=== PATIENT | female | born 1985 | race Caucasian/White ===

== ENCOUNTER 2016-08-06 22:11 | Emergency (ER) | payer MEDICAID, OTHER ==
[~2016-08-06] VITALS: Ht 152.4 cm; Wt 50.0 kg
[~2016-08-06 22:11] MED LIST: COMBTAB7 PO; KALETRA200 PO; ZOFR4TAB3 SL
[2016-08-06 22:13] VITALS: BP 115/78; PULSE 71; RESP 16; TEMP 98.1; O2SAT 100
[2016-08-07 03:30] VITALS: BP 112/59; PULSE 60; RESP 16; O2SAT 99
--- NOTE | 2016-08-07 03:50 | PD ---
HPI Chief Complaint: Medical Clearance Time Seen by Provider: 02:21 Travel History International Travel<30 days: No Contact w/Intl Traveler<30days: No Traveled to known affect area: No History of Present Illness HPI The patient is a 30 year old female reportedly at 9 weeks gestation who presents to the 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 The patient reports that she came to the emergency department after the incident and was evaluated. The patient was started on postexposure prophylaxis. She reports that she was given a 5 day supply. She reports that she was not given a prescription to continue it for 28 days. He reports that she was told to follow-up with an infectious disease doctor. She reports that she followed up with Workmen's Compensation and was referred to [facility]. She should've the paperwork to [facility] that she received from the [facility] regarding her evaluation and was told that she needed laboratory studies done. From reviewing the patient's record, the patient had hepatitis testing done and a urine test done that was positive. The patient was not aware at that time that she was . The patient had a follow-up quantitative beta hCG which confirmed her . The patient was made aware of the results and instructed to follow up with an [employer] in addition to the infectious disease doctor. The patient was given hepatitis immunoglobulin and hepatitis immunization was started. No other blood work was sent during that visit. The patient denies having HIV testing done at [facility]. 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 The patient denies having any recent fevers, cough, congestion, neck pain, chest pain, shortness of breath, abdominal pain, vomiting, diarrhea, urinary symptoms, or neurologic symptoms. The patient denies having any vaginal discharge or vaginal bleeding. LMP June 21, 2016 [facility] Past Medical History Narrative Medical The patient's past medical history is reportedly none. Asthma: No Blood Disorders: No Cancer: No Cardiovascular Problems: No Diminished Hearing: No Endocrine: No Gastrointestinal Disorders: Yes (ACUTE CHOLECYSTITIS) Immune Disorder: No Implanted Vascular Access Dvce: No Musculoskeletal: Yes Neurologic: No Psychiatric: No Reproductive: No Respiratory: No Seizures: No Thyroid Disease: No ?: LMP: 06/21/16 : 2 Para: 1 Past Surgical History Narrative Surgical The patient has a history of cholecystectomy, 1. Section: Yes Cholecystectomy: Yes () Other Surgery: Yes (C SECTION, LEFT INGUINAL LYMPH NODE BIOPSY) Social History Alcohol Use: No Tobacco Use: Yes (08/05 ppd) Substance Use: No Allergies-Medications (Allergen,Severity, Reaction): Coded Allergies: No Known Allergies (Verified , 08/06/16) Reported Meds & Prescriptions Reported Meds & Active Scripts Active ( Vit-Ferrous Fumarate) 1 Tab Tab 1 Tab PO DAILY Zofran Odt (Ondansetron Odt) 4 Mg Tab 4 Mg SL Q8HR PRN Kaletra (Lopinavir/Ritonavir) 200-50 Mg Tab 2 Tab PO Q12HR 28 Days Fill this 5 day prescription first & begin taking Kaletra 12 hours after the first dose received in the Emergency Department as prescribed. Combivir (Lamivudine-Zidovudine) 150-300 Mg Tab 1 Tab PO BID 28 Days Narrative Medication No medications currently. Review of Systems Except as stated in HPI: all other systems reviewed are Neg General / Constitutional: No: Fever Eyes: No: Visual changes HENT: No: Headaches Cardiovascular: No: Chest Pain or Discomfort Respiratory: No: Shortness of Breath Gastrointestinal: No: Abdominal Pain Genitourinary: No: Dysuria Musculoskeletal: No: Pain Skin: No Rash Neurologic: No: Weakness Psychiatric: No: Depression Endocrine: No: Polydipsia Hematologic/Lymphatic: No: Easy Bruising Physical Exam Narrative General: The patient is a well-developed well-nourished female in no acute distress. Head and Neck exam: Head is normocephalic atraumatic. Eyes: Pupils are equal round and reactive to light. Nose: Midline septum with pink mucous membranes Mouth: Dentition unremarkable. Moist mucus membranes. Posterior oropharynx is not erythematous. No tonsillar hypertrophy. Uvula midline. Airway patent. Neck: No palpable lymphadenopathy. No nuchal rigidity. No thyromegaly. Cardiovascular: Regular rate and rhythm without murmurs, gallops, or rubs. Lungs: Clear to auscultation bilaterally. No wheezes, rhonchi, or rales. Abdomen: Soft, without tenderness to palpation in all 4 quadrants of the abdomen. No guarding, rebound, or rigidity. No tenderness on palpation of McBurney's point. Normal bowel sounds are audible. Extremities: No clubbing, cyanosis, or edema. 2+ pulses in all 4 extremities. No calf tenderness on palpation. Back: No spinous process tenderness to palpation. No costovertebral angle tenderness to palpation. Neurologic Exam: Grossly nonfocal. Skin Exam: No rash noted. Intact skin that is warm and dry. Data Data Last Documented VS Vital Signs Date Time Temp Pulse Resp B/P Pulse Ox O2 Delivery O2 Flow Rate FiO2 08/07/16 03:30 60 16 112/59 99 Room Air 08/06/16 22:13 98.1 Orders No Care Spec Serology (08/07/16 03:14) Complete Blood Count With Diff (08/07/16 03:03) Comprehensive Metabolic Panel (08/07/16 03:03) Lipase (08/07/16 03:03) Hepatitis Profile (08/07/16 03:03) Beta Hcg (Quant/Titer) (08/07/16 03:17) Ed Poc Ultrasound (08/07/16 04:02) Labs Laboratory Tests Test 08/07/16 04:00 White Blood Count 9.1 TH/MM3 Red Blood Count 3.99 MIL/MM3 Hemoglobin 12.3 GM/DL Hematocrit 35.0 % Mean Corpuscular Volume 87.8 FL Mean Corpuscular Hemoglobin 30.8 PG Mean Corpuscular Hemoglobin 35.0 % Concent Red Cell Distribution Width 13.2 % Platelet Count 175 TH/MM3 Mean Platelet Volume 9.2 FL Neutrophils (%) (Auto) 57.2 % Lymphocytes (%) (Auto) 31.9 % Monocytes (%) (Auto) 7.5 % Eosinophils (%) (Auto) 2.3 % Basophils (%) (Auto) 1.1 % Neutrophils # (Auto) 5.2 TH/MM3 Lymphocytes # (Auto) 2.9 TH/MM3 Monocytes # (Auto) 0.7 TH/MM3 Eosinophils # (Auto) 0.2 TH/MM3 Basophils # (Auto) 0.1 TH/MM3 CBC Comment DIFF FINAL Differential Comment Sodium Level 139 MEQ/L Potassium Level 3.6 MEQ/L Chloride Level 108 MEQ/L Carbon Dioxide Level 21.9 MEQ/L Anion Gap 9 MEQ/L Blood Urea Nitrogen 7 MG/DL Creatinine 0.48 MG/DL Estimat Glomerular Filtration 154 ML/MIN Rate Random Glucose 91 MG/DL Calcium Level 8.7 MG/DL Total Bilirubin 0.3 MG/DL Aspartate Amino Transf 14 U/L (AST/SGOT) Alanine Aminotransferase 19 U/L (ALT/SGPT) Alkaline Phosphatase 47 U/L Total Protein 6.8 GM/DL Albumin 3.6 GM/DL Lipase 342 U/L Human Chorionic Gonadotropin, [address] MIU/ML Quant [facility] Medical Decision Making Medical Screen Exam Complete: Yes Emergency Medical Condition: Yes Medical Record Reviewed: Yes Differential Diagnosis Hepatitis exposure versus HIV exposure Narrative Course During the course of the patients emergency department visit, the patients history, examination, and differential diagnosis were reviewed with the patient. The patient had IV access obtained and blood work sent for analysis. The patient consented to HIV testing. The patient's nurse notified the charge nurse and the warehouse team leader regarding this patient's case. Rapid HIV testing has been ordered. At this point, there is no indication for restarting the patient back on post exposure prophylaxis as she has been off of it since July 27. I discussed with the patient the fact that commonly Workmen's Compensation will care for patients after exposures related to work. However she reports that Workmen's Compensation was concerned that she would need to follow up with an infectious disease doctor. The infectious disease doctor that is neonatal specialist today is Dr. Najma Arroyo. The patient will be given the infectious disease doctor's information for follow-up. The patient's laboratory studies today are remarkable for a white count of 9.1, hemoglobin 12.3, platelets 175 with a normal differential. CMP is remarkable for a chloride of 108, creatinine 0.48, AST 14, lipase 342, quantitative beta hCG is 20,990, rapid HIV testing was reportedly negative according to Baldo in the lab. The patient has an appointment scheduled with women's care [facility] [facility] [facility]PER in approximately a week. The patient is resting comfortably and feels better, is alert and in no distress. The patients results and examination findings were discussed with the patient. The repeat examination is unremarkable and benign. The history, exam, diagnostic testing, and current condition do not suggest any significant pathology to warrant further testing, continued ED treatment, admission, or surgical evaluation at this point. The vital signs have been stable. The patient does not have uncontrollable pain, intractable vomiting, or other significant symptoms. The patient's condition is stable and appropriate for discharge. The patient will pursue further outpatient evaluation with a primary care physician or other designated or consulting physician as indicated in the discharge instructions. The patient expressed understanding and was agreeable with this plan. Physician Communication Physician Communication A call was placed out to the infectious disease doctor on-call at approximately 4:23 AM regarding this patient's case. Unfortunately, when the call center was called, we were informed that Dr. Arroyo does not take phone calls after 10 PM. The call that I was placing was a courtesy call regarding letting her know about the patient's history. The patient will as recommended by the call center , be given Dr. Arroyo's information for follow-up. Diagnosis Primary Impression: Needle stick injury of finger of right hand Qualified Code: S61.239D - Needle stick injury of finger of right hand, subsequent encounter Additional Impression: Qualified Code: Z33.1 - , unspecified gestational age Referrals: Najma Arroyo MD 2 days Service Planner 1 week Patient Instructions: General Instructions, Needle Stick Injuries (ED) Med/Other Pt SpecificInfo: Prescription(s) given Scripts Vit-Ferrous Fumarate ()1 Tab Tab1 Tab PO DAILY #30 TAB Ref 0 Prov:Vashti Neal MD 08/07/16 Disposition: 01 DISCHARGE HOME Condition: Stable Vashti Neal MD Aug 07, 2016 03:49
[2016-08-07 04:18] LABS: AUTOMATED NEUTROPHIL # 5.2 TH/MM3 (1.8-7.7); BASOPHIL # 0.1 TH/MM3 (0-0.2); BASOPHIL % 1.1 % (0.0-2.0); EOSINOPHIL # 0.2 TH/MM3 (0-0.4); EOSINOPHIL % 2.3 % (0.0-4.0); HEMO FLAGS DIFF FINAL; LYMPH % 31.9 % (9.0-44.0); LYMPHOCYTE # 2.9 TH/MM3 (1.0-4.8); MEAN CELL VOLUME 87.8 FL (80.0-100.0); MEAN CORPUSCULAR HEMOGLOBIN 30.8 PG (27.0-34.0); MONO % 7.5 % (0.0-8.0); NEUT % 57.2 % (16.0-70.0); PLATELET COUNT 175 TH/MM3 (150-450); RED BLOOD COUNT 3.99 MIL/MM3 (4.00-5.30); RED CELL DISTRIBUTION WIDTH 13.2 % (11.6-17.2); WHITE BLOOD COUNT 9.1 TH/MM3 (4.0-11.0)
[2016-08-07 04:42] LABS: ALKALINE PHOSPHATASE 47 U/L (45-117); TOTAL BILIRUBIN ADULT 0.3 MG/DL (0.2-1.0)
[2016-08-07 04:45] LABS: ALT (GPT) 19 U/L (10-53); ANION GAP 9 MEQ/L (5-15); AST (GOT) 14 U/L (15-37); BICARBONATE 21.9 MEQ/L (21.0-32.0); BLOOD UREA NITROGEN 7 MG/DL (7-18); CHLORIDE 108 MEQ/L (98-107); GLOMERULAR FILTRATION RATE 154 ML/MIN (>89); POTASSIUM 3.6 MEQ/L (3.5-5.1); SODIUM (NA) 139 MEQ/L (136-145)
[2016-08-07 05:35] LABS: BETA HCG QUANT 20990 MIU/ML (0-5)
[2016-08-07] MEDS ORDERED: TRICTAB PO (05:41)
== END 2016-08-07 07:09 | disposition home or self-care (01) ==
LOC: NEPC 22:11
DX: S61.239A Puncture wound without foreign body of unspecified finger without damage to nail, initial encounter (principal); W46.0XXA Contact with hypodermic needle, initial encounter; Y92.524 Gas station as the place of occurrence of the external cause; Y99.0 Civilian activity done for income or pay; O9A.211 Injury, poisoning and certain other consequences of external causes complicating pregnancy, first trimester; Z3A.09 9 weeks gestation of pregnancy
CPT/HCPCS: 80053; 80074; 83690; 84702; 85025; 86703; 99283

== ENCOUNTER 2017-01-28 12:59 | Emergency (ER) | payer MEDICAID ==
[~2017-01-28] VITALS: Ht 152.4 cm; Wt 50.0 kg
[~2017-01-28 12:59] MED LIST changes: +TRICTAB PO
--- NOTE | 2017-01-28 13:05 | PD ---
Physical Exam Date Seen by Provider: Jan 28, 2017 Time Seen by Provider: 13:04 [facility] Supervised Visit with DAPHNE: No Narrative Course 31 YO F with complaint of " a couple days" history of cramping RUQ abdominal pain. --F/C, N/V/D. LMP 01/24. Vitals reviewed. Patient seen in triage, awaiting bed placement. Moni Rucker Jan 28, 2017 13:05
[2017-01-28 13:09] VITALS: BP 132/74; PULSE 84; RESP 15; TEMP 97.8; O2SAT 97
[2017-01-28] MEDS ORDERED: SODIUM CHLOR 0.9% 1000 ML INJ 1,000 ML IV SCH (13:25)
[2017-01-28] MEDS ORDERED: KETOROLAC TROMETHAMINE 30 MG/ML (IVP) VIAL IVP ONE (13:30)
[2017-01-28] MEDS ORDERED: ONDANSETRON HCL 4 MG/2 ML VIAL IVP ONE (13:30)
--- NOTE | 2017-01-28 13:31 | PD ---
HPI Chief Complaint: Abdominal Pain Time Seen by Provider: 13:20 Travel History International Travel<30 days: No Contact w/Intl Traveler<30days: No Traveled to known affect area: No History of Present Illness HPI This patient was examined in the presence of a female nurse. 31-year-old female who underwent cholecystectomy on December 01, 2015. She presents for evaluation of crampy right upper quadrant and epigastric abdominal pain. Symptoms started 3 days ago. Pain is constant, worse when lying down, no alleviating factors. She has had similar pain a few other times since her cholecystectomy. She endorses some nausea. Denies vomiting, flank pain, chest pain or shortness of breath, fevers or chills, vaginal bleeding or discharge, diarrhea or constipation. She has no other complaints at this time. PFSH Past Medical History Medical History: Denies Significant Hx Asthma: No Blood Disorders: No Cancer: No Cardiovascular Problems: No Diminished Hearing: No Endocrine: No Gastrointestinal Disorders: Yes (ACUTE CHOLECYSTITIS) Immune Disorder: No Implanted Vascular Access Dvce: No Musculoskeletal: Yes Neurologic: No Psychiatric: No Reproductive: No Respiratory: No Immunizations Current: Yes Seizures: No Thyroid Disease: No ?: Not LMP: 01-24- : 2 Para: 1 Past Surgical History Section: Yes Cholecystectomy: Yes () Other Surgery: Yes (C SECTION, LEFT INGUINAL LYMPH NODE BIOPSY) Social History Alcohol Use: No Tobacco Use: Yes (08/05 ppd) Substance Use: No Allergies-Medications (Allergen,Severity, Reaction): Coded Allergies: No Known Allergies (Verified , 01/28/17) Reported Meds & Prescriptions Reported Meds & Active Scripts Active Zofran (Ondansetron HCl) 4 Mg Tab 4 Mg PO Q6HR PRN Macrobid (Nitrofurantoin Monoh/Nitrofur Macro) 100 Mg Cap 100 Mg PO BID 7 Days Review of Systems Except as stated in HPI: all other systems reviewed are Neg Physical Exam Narrative GENERAL: Well-developed well-nourished female in no acute distress. SKIN: Warm and dry. HEAD: Atraumatic. Normocephalic. EYES: Pupils equal and round. No scleral icterus. No injection or drainage. ENT: No nasal bleeding or discharge. Mucous membranes pink and moist. NECK: Trachea midline. No JVD. CARDIOVASCULAR: Regular rate and rhythm. No murmur appreciated. RESPIRATORY: No accessory muscle use. Clear to auscultation. Breath sounds equal bilaterally. GASTROINTESTINAL: Abdomen soft, mild epigastric/right upper quadrant tenderness without guarding. No CVA tenderness. MUSCULOSKELETAL: No obvious deformities. No edema. NEUROLOGICAL: Awake and alert. No obvious cranial nerve deficits. Motor grossly within normal limits. Normal speech. PSYCHIATRIC: Appropriate mood and affect; insight and judgment normal. Data Data Last Documented VS Vital Signs Date Time Temp Pulse Resp B/P Pulse Ox O2 Delivery O2 Flow Rate FiO2 01/28/17 13:22 18 01/28/17 13:09 97.8 84 132/74 97 Orders Complete Blood Count With Diff (01/28/17 13:25) Comprehensive Metabolic Panel (01/28/17 13:25) Lipase (01/28/17 13:25) Urinalysis - C+S If Indicated (01/28/17 13:25) Iv Access Insert/Monitor (01/28/17 13:25) Ondansetron Inj (Zofran Inj) (01/28/17 13:30) Sodium Chlor 0.9% 1000 Ml Inj (Ns 1000 M (01/28/17 13:25) Ketorolac Inj (Toradol Inj) (01/28/17 13:30) Ed Urine Pregnancytest Poc (01/28/17 13:25) Urine Culture (01/28/17 13:35) Ct Abd/Pel W Iv Contrast(Rout) (01/28/17 14:15) Iohexol 350 Inj (Omnipaque 350 Inj) (01/28/17 15:28) Morphine Inj (Morphine Inj) (01/28/17 16:30) Labs Laboratory Tests Test 01/28/17 01/28/17 13:35 13:45 Urine Color YELLOW Urine Turbidity HAZY Urine pH 6.5 Urine Specific [place] 1.025 Urine Protein 30 mg/dL Urine Glucose (UA) NEG mg/dL Urine Ketones NEG mg/dL Urine Occult Blood NEG Urine Nitrite NEG Urine Bilirubin NEG Urine Urobilinogen 4.0 MG/DL Urine Leukocyte Esterase SMALL Urine RBC 3 /hpf Urine WBC 18 /hpf Urine Squamous Epithelial 3 /hpf Cells Urine Bacteria OCC /hpf Urine Mucus MANY /lpf Microscopic Urinalysis Comment CULTURE INDICATED White Blood Count 9.5 TH/MM3 Red Blood Count 4.53 MIL/MM3 Hemoglobin 13.4 GM/DL Hematocrit 39.9 % Mean Corpuscular Volume 88.2 FL Mean Corpuscular Hemoglobin 29.6 PG Mean Corpuscular Hemoglobin 33.5 % Concent Red Cell Distribution Width 13.9 % Platelet Count 240 TH/MM3 Mean Platelet Volume 8.9 FL Neutrophils (%) (Auto) 63.1 % Lymphocytes (%) (Auto) 23.7 % Monocytes (%) (Auto) 11.0 % Eosinophils (%) (Auto) 1.5 % Basophils (%) (Auto) 0.7 % Neutrophils # (Auto) 6.0 TH/MM3 Lymphocytes # (Auto) 2.2 TH/MM3 Monocytes # (Auto) 1.0 TH/MM3 Eosinophils # (Auto) 0.1 TH/MM3 Basophils # (Auto) 0.1 TH/MM3 CBC Comment DIFF FINAL Differential Comment Sodium Level 140 MEQ/L Potassium Level 3.6 MEQ/L Chloride Level 105 MEQ/L Carbon Dioxide Level 28.5 MEQ/L Anion Gap 7 MEQ/L Blood Urea Nitrogen 6 MG/DL Creatinine 0.78 MG/DL Estimat Glomerular Filtration 87 ML/MIN Rate Random Glucose 94 MG/DL Calcium Level 9.2 MG/DL Total Bilirubin 0.5 MG/DL Aspartate Amino Transf 12 U/L (AST/SGOT) Alanine Aminotransferase 18 U/L (ALT/SGPT) Alkaline Phosphatase 59 U/L Total Protein 7.6 GM/DL Albumin 3.9 GM/DL Lipase 414 U/L MDM Medical Decision Making Medical Screen Exam Complete: Yes Emergency Medical Condition: Yes Medical Record Reviewed: Yes Differential Diagnosis Neuralgia, pancreatitis, [place] Rory syndrome, obstruction, gastroenteritis , gastritis Narrative Course 31-year-old female who underwent cholecystectomy on December 01, 2015 presents with 3 days of crampy epigastric/right upper quadrant abdominal pain. Physical examination reveals mild tenderness to palpation in the epigastrium/right upper quadrant. Per chart review the patient is been seen here several times with similar pain since the cholecystectomy. She was seen here with similar pain on April 25, 2016, had a CT of the abdomen and pelvis which was normal. She had CTs of the abdomen and pelvis on December 02 and January 23 of last year for similar pain which were also within normal limits. I don't suspect acute intra- abdominal pathology today. Plan is for basic lab work, IV Toradol, Zofran. She may benefit from outpatient follow-up with gastroenterology or her surgeon Dr. daigle. Laboratory reveals a mildly elevated lipase of 414. Therefore CT abdomen and pelvis was ordered and this was unremarkable. The plan would be to have the patient follow up with a regroover as an outpatient. Mandatory outpatient referral was placed. Her urinalysis also reveals pyuria with occasional bacteria as well. Pending culture results she will be placed on Macrobid. Recommended clear liquid diet. She is stable for discharge. Diagnosis Primary Impression: Pancreatitis Qualified Code: K85.90 - Acute pancreatitis, unspecified complication status, unspecified pancreatitis type Additional Impression: Urinary tract infection Qualified Code: N30.01 - Acute cystitis with hematuria Referrals: Property Damage Claims Adjustor Additional Instructions: Medication as prescribed. Clear liquid diet over the next 1-2 days. Follow up with a regroover. Return for any acutely new or worsening symptoms. Med/Other Pt SpecificInfo: Prescription(s) given Scripts Ondansetron (Zofran)4 Mg Tab4 Mg PO Q6HR PRN (NAUSEA OR VOMITING) #20 TAB Ref 0 Prov:Will Pope MD 01/28/17 Nitrofurantoin Monohydrate Macrocrystals (Macrobid)100 Mg Bex744 Mg PO BID 7 Days Ref 0 Prov:Will Pope MD 01/28/17 Disposition: 01 DISCHARGE HOME Condition: Stable Tang Hart Jan 28, 2017 13:31
[2017-01-28 13:54] LABS: BASOPHIL # 0.1 TH/MM3 (0-0.2); BASOPHIL % 0.7 % (0.0-2.0); EOSINOPHIL # 0.1 TH/MM3 (0-0.4); EOSINOPHIL % 1.5 % (0.0-4.0); HEMATOCRIT 39.9 % (35.0-46.0); HEMO FLAGS DIFF FINAL; LYMPH % 23.7 % (9.0-44.0); LYMPHOCYTE # 2.2 TH/MM3 (1.0-4.8); MEAN CELL VOLUME 88.2 FL (80.0-100.0); MEAN CORPUSCULAR HEMOGLOBIN 29.6 PG (27.0-34.0); MEAN CORPUSCULAR HGB CONC 33.5 % (32.0-36.0); NEUT % 63.1 % (16.0-70.0); PLATELET COUNT 240 TH/MM3 (150-450); RED BLOOD COUNT 4.53 MIL/MM3 (4.00-5.30); RED CELL DISTRIBUTION WIDTH 13.9 % (11.6-17.2); WHITE BLOOD COUNT 9.5 TH/MM3 (4.0-11.0)
[2017-01-28 13:59] LABS: BACTERIA, URINE OCC /hpf; BLOOD, URINE NEG (NEG); COMMENT (UR) CULTURE INDICATED; CULTURE IF INDICATED CULTURE INDICATED; GLUCOSE,URINE NEG (NEG); KETONE, URINE NEG (NEG); MUCUS URINE MANY /lpf (OCC); NITRITE,URINE NEG (NEG); PH, URINE 6.5 (5.0-8.5); SQUAMOUS EPITHELIAL CELL URINE 3 /hpf (0-5); URINE COLOR YELLOW (YELLW/STRAW)
[2017-01-28 14:14] LABS: ANION GAP 7 MEQ/L (5-15); AST (GOT) 12 U/L (15-37); BICARBONATE 28.5 MEQ/L (21.0-32.0); BLOOD UREA NITROGEN 6 MG/DL (7-18); CHLORIDE 105 MEQ/L (98-107); GLOMERULAR FILTRATION RATE 87 ML/MIN (>89); POTASSIUM 3.6 MEQ/L (3.5-5.1); SODIUM (NA) 140 MEQ/L (136-145)
[2017-01-28 14:16] LABS: ALKALINE PHOSPHATASE 59 U/L (45-117); ALT (GPT) 18 U/L (10-53); TOTAL BILIRUBIN ADULT 0.5 MG/DL (0.2-1.0)
[2017-01-28] MEDS ORDERED: IOHEXOL 350 MG/ML 10 ML VIAL (for RAD DIAG) IV ONE (15:28)
--- NOTE | 2017-01-28 15:34 | RADRPT ---
EXAM DATE/TIME: 01/28/2017 15:23 [place] COMPARISON: CT ABDOMEN & PELVIS W CONTRAST, April 25, 2016, 21:12. INDICATIONS : Right upper quadrant pain IV CONTRAST: 100 cc Omnipaque 350 (iohexol) IV ORAL CONTRAST: No oral contrast ingested. RADIATION DOSE: 4.63 CTDIvol (mGy) MEDICAL HISTORY : None SURGICAL HISTORY : Cholecystectomy. section. ENCOUNTER: Initial ACUITY: 1 day PAIN SCALE: 7/10 LOCATION: Right upper quadrant TECHNIQUE: Volumetric scanning of the abdomen and pelvis was performed. Using automated exposure control and ad justment of the mA and/or kV according to patient size, radiation dose was kept as low as reasonably achievable to obtain optimal diagnostic quality images. DICOM format image data is available electro nically for review and comparison. FINDINGS: There is a stable subtle hypervascular lesion in the right lobe of the liver. Kidneys, adrenals, sple en, pancreas, stomach, urinary bladder, uterus and adnexa are unremarkable. Trace free fluid in the p nigel. No evidence of bowel obstruction. The patient is status post cholecystectomy. The appendix is normal. No adenopathy or aneurysm. CONCLUSION: No acute disease. Peter Lyons MD on January 28, 2017 at 15:31 Board Certified Radiologist. This report was verified electronically.
[2017-01-28] MEDS ORDERED: MACR100C2 PO (16:18)
[2017-01-28] MEDS ORDERED: ZOFR4TAB PO (16:18)
[2017-01-28] MEDS ORDERED: MORPHINE SULFATE 4 MG/ML INJ IV PUSH ONE (16:30)
[2017-01-28 16:39] VITALS: BP 122/74
== END 2017-01-28 16:48 | disposition home or self-care (01) ==
LOC: NEPD 12:59
DX: K85.90 Acute pancreatitis without necrosis or infection, unspecified (principal); N30.01 Acute cystitis with hematuria; B95.1 Streptococcus, group B, as the cause of diseases classified elsewhere; F17.210 Nicotine dependence, cigarettes, uncomplicated
CPT/HCPCS: 74177; 80053; 81001; 83690; 84703; 85025; 86403; 87086; 96361; 96374; 96375; 99285; J1885; J2270; J2405; J7030; Q9967

== ENCOUNTER 2017-02-10 23:00 | Emergency (ER) | payer MEDICAID ==
[~2017-02-10] VITALS: Ht 152.4 cm; Wt 50.0 kg
[~2017-02-10 23:00] MED LIST changes: -COMBTAB7 PO; -KALETRA200 PO; +MACR100C2 PO; -TRICTAB PO; +ZOFR4TAB PO; -ZOFR4TAB3 SL
[2017-02-10 23:20] VITALS: BP 131/73; PULSE 62; RESP 16; TEMP 97.9; O2SAT 100
[2017-02-11] MEDS ORDERED: CLINDAMYCIN PED INJ PTS< 20 KG 600 MG in SYRINGE/BAG 1 EA OTHER ONE (01:30)
[2017-02-11] MEDS ORDERED: ACETAMINOPHEN/HYDROcodone 325 MG/5 MG TAB PO ONE (01:30)
[2017-02-11] MEDS ORDERED: CLIN150 PO (01:30)
[2017-02-11] MEDS ORDERED: DICL75TA PO (01:30)
--- NOTE | 2017-02-11 01:35 | PD ---
HPI Chief Complaint: Oral / Dental Pain or Problem Time Seen by Provider: 01:32 Travel History International Travel<30 days: No Contact w/Intl Traveler<30days: No Traveled to known affect area: No History of Present Illness HPI 31-year-old white female presents to emergency department complaints of right facial pain and swelling. She states that 2-3 days ago she had pain in her right upper maxilla from a toothache. She states that since then she's had pain radiating to her right ear and face. She's had some swelling now. She denies any fever chills. No nausea vomiting. She does report some difficulty opening her mouth pain. Patient states the pain is severe. PFSH Past Medical History Narrative Medical Gallstones Asthma: No Blood Disorders: No Cancer: No Cardiovascular Problems: No Diminished Hearing: No Endocrine: No Gastrointestinal Disorders: Yes (ACUTE CHOLECYSTITIS) Immune Disorder: No Implanted Vascular Access Dvce: No Musculoskeletal: Yes Neurologic: No Psychiatric: No Reproductive: No Respiratory: No Immunizations Current: Yes Seizures: No Thyroid Disease: No Tetanus Vaccination: < 5 Years Influenza Vaccination: Yes ?: Unknown LMP: 01/25/17 : 2 Para: 1 Past Surgical History Section: Yes Cholecystectomy: Yes () Other Surgery: Yes (C SECTION, LEFT INGUINAL LYMPH NODE BIOPSY) Social History Alcohol Use: No Tobacco Use: Yes (08/05 ppd) Substance Use: No Allergies-Medications (Allergen,Severity, Reaction): Coded Allergies: No Known Allergies (Verified , 02/11/17) Reported Meds & Prescriptions Reported Meds & Active Scripts Active Diclofenac Sodium DR (Diclofenac Sodium) 75 Mg Tabdr 75 Mg PO BID Cleocin (Clindamycin HCl) 150 Mg Cap 300 Mg PO Q6H Review of Systems Except as stated in HPI: all other systems reviewed are Neg Physical Exam Narrative GENERAL: Well-developed, well-nourished in no acute distress. Nontoxic appearing. HEAD: Patient has mild swelling to the right anterior cheek. Atraumatic. EYES: Pupils equal round and reactive. Extraocular motions intact. No scleral icterus. No injection or drainage. ENT: TMs clear without erythema. The external auditory canals clear. Nose: clear . Posterior pharynx is pink and moist. No tonsillar edema or exudate. Uvula midline. Airway patent. Patient has a very large dental carry in tooth # 3. It is decayed to the gumline. There is a large amount of edema to the surrounding gingiva. Positive pain to percussion. The floor the mouth is normal. No trismus NECK: Trachea midline.Supple, nontender, moves head freely. No central bony tenderness or spasm. CARDIOVASCULAR: Regular rate and rhythm without murmurs, gallops, or rubs. RESPIRATORY: Clear to auscultation. Breath sounds equal bilaterally. No wheezes , rales, or rhonchi. GASTROINTESTINAL: Abdomen soft, non-tender, nondistended. No hepato-splenomegaly , or palpable masses. No guarding. EXTREMITIES: No clubbing, cyanosis, or edema. No joint tenderness, effusion, or edema noted. BACK: Nontender without deformity or crepitance. No flank tenderness. Data Data Last Documented VS Vital Signs Date Time Temp Pulse Resp B/P Pulse Ox O2 Delivery O2 Flow Rate FiO2 02/10/17 23:20 97.9 62 16 131/73 100 Room Air Orders Acetamin-Hydrocod 325-5 Mg ([place] 5-325 (02/11/17 01:30) Clindamycin Ped Inj Pts< 20 Kg (Cleocin (02/11/17 01:30) MDM Medical Decision Making Medical Screen Exam Complete: Yes Emergency Medical Condition: Yes Medical Record Reviewed: Yes Differential Diagnosis MDM: Moderate Differential diagnoses: Dental abscess, dental caries, osteitis, cellulitis Narrative Course Patient has a dental abscess with early cellulitis. Patient's given clindamycin 600 mg IM and one Lortab 5 milligram by mouth. Diagnosis Primary Impression: dental abscess with early facial cellulitis Patient Instructions: Narcotic given in the ED, General Instructions Additional Instructions: Rest. Saltwater gargles. Surfside oil on cotton balls. Clindamycin and diclofenac. follow-up with a dentist or oral surgeon as soon as possible. And return to the ER if any problems. Med/Other Pt SpecificInfo: Prescription(s) given Scripts Diclofenac Sodium DR 75 Mg Tabdr75 Mg PO BID #20 TAB Prov:Vashti Neal MD 02/11/17 Clindamycin (Cleocin)150 Mg [id number] Mg PO Q6H #80 CAP Prov:Vashti Neal MD 02/11/17 Disposition: 01 DISCHARGE HOME Condition: Stable Bennett Moy PA Feb 11, 2017 01:35
[2017-02-11] MEDS ORDERED: SODIUM CHLORIDE 0.9% IV ONE (01:45)
[2017-02-11] MEDS ORDERED: CLINDAMYCIN PED IV ONE (01:45)
[2017-02-11] MEDS ORDERED: CLINDAMYCIN INJ 600 MG in SODIUM CHLORIDE 0.9% INJ 100 ML IV SCH (01:45)
== END 2017-02-11 02:13 | disposition home or self-care (01) ==
LOC: NEPD 23:00
DX: K04.7 Periapical abscess without sinus (principal); L03.211 Cellulitis of face; F17.200 Nicotine dependence, unspecified, uncomplicated
CPT/HCPCS: 96374

== ENCOUNTER 2017-04-01 14:35 | Emergency (ER) | payer MEDICAID ==
[~2017-04-01] VITALS: Ht 152.4 cm; Wt 50.0 kg
[~2017-04-01 14:35] MED LIST changes: +CLIN150 PO; +DICL75TA PO; +DICY10 PO; -MACR100C2 PO; -ZOFR4TAB PO; +ZOFR8TAB4 SL
[2017-04-01 14:36] VITALS: BP 139/71; PULSE 52; RESP 15; TEMP 98.3; O2SAT 97
--- NOTE | 2017-04-01 14:45 | PD ---
Physical Exam Time Seen by Provider: 14:45 Narrative 31yo F c/o abd pain x 1 week. Dx w/ pancreatitis 3 weeks ago. +fever 101.0, N , V, D. Patient seen in triage. VS reviewed. Patient awaiting bed placement. Data Data Last Documented VS Vital Signs Date Time Temp Pulse Resp B/P (MAP) Pulse Ox O2 Delivery O2 Flow Rate FiO2 04/01/17 14:36 98.3 52 15 139/71 (93) 97 MDM Supervised Visit with DAPHNE: Queenie Choudhury Apr 01, 2017 14:45
--- NOTE | 2017-04-01 17:34 | PD ---
HPI Chief Complaint: Abdominal Pain Time Seen by Provider: 17:25 Travel History International Travel<30 days: No Contact w/Intl Traveler<30days: No Traveled to known affect area: No History of Present Illness HPI Patient is a 31-year-old female presents emergency Department with epigastric pain. Patient states his been going on for greater than 2 years and that I evaluated multiple times this hospital. She states she was told it was many different things including pancreatitis and colitis but she is not getting any better. She states the past 3 days the pain is been severe. She states that she has tried Tylenol at home and it doesn't help. She states she's been evaluated recently and told might be her pancreas. She has an appointment with a primary care physician who is supposed to refer her to a marine reporter however it appears as though her insurance status only lets her primary care provider refer her to specialist because she's been referred by another provider in the past. She denies any fever denies but does endorse nausea vomiting and diarrhea both of which are nonbloody and nonbilious and non- melenanous. Patient states the pain is severe and gradually worsening and epigastric. PFSH Past Medical History Asthma: No Blood Disorders: No Cancer: No Cardiovascular Problems: No Diminished Hearing: No Endocrine: No Gastrointestinal Disorders: Yes (ACUTE CHOLECYSTITIS) Immune Disorder: No Implanted Vascular Access Dvce: No Musculoskeletal: Yes Neurologic: No Psychiatric: No Reproductive: No Respiratory: No Immunizations Current: Yes Seizures: No Thyroid Disease: No ?: Not : 2 Para: 1 Past Surgical History Section: Yes Cholecystectomy: Yes () Other Surgery: Yes (C SECTION, LEFT INGUINAL LYMPH NODE BIOPSY) Social History Alcohol Use: No Tobacco Use: Yes (2 ppd) Substance Use: No Allergies-Medications (Allergen,Severity, Reaction): Coded Allergies: No Known Allergies (Verified , 02/11/17) Reported Meds & Prescriptions Reported Meds & Active Scripts Active Zofran Odt (Ondansetron Odt) 4 Mg Tab 4 Mg SL ONCE Ultram (Tramadol HCl) 50 Mg Tab 50 Mg PO Q6H PRN Bentyl (Dicyclomine HCl) 10 Mg Cap 10 Mg PO TID PRN Zofran Odt (Ondansetron Odt) 8 Mg Tab 8 Mg SL Q8HR Review of Systems Except as stated in HPI: all other systems reviewed are Neg Physical Exam Narrative GENERAL: Well-developed well-nourished, sitting upright in a stretcher calm and collected and appears to be in no pain or distress. SKIN: Focused skin assessment warm/dry. HEAD: Atraumatic. Normocephalic. EYES: Pupils equal and round. No scleral icterus. No injection or drainage. ENT: No nasal bleeding or discharge. Mucous membranes pink and moist. NECK: Trachea midline. No JVD. CARDIOVASCULAR: Regular rate and rhythm. No murmur appreciated. RESPIRATORY: No accessory muscle use. Clear to auscultation. Breath sounds equal bilaterally. GASTROINTESTINAL: Abdomen soft, non-tender, nondistended. Hepatic and splenic margins not palpable. No rebound no percussive tenderness no CVA tenderness. MUSCULOSKELETAL: No obvious deformities. No clubbing. No cyanosis. No edema. NEUROLOGICAL: Awake and alert. No obvious cranial nerve deficits. Motor grossly within normal limits. Normal speech. PSYCHIATRIC: Appropriate mood and affect; insight and judgment normal. Data Data Last Documented VS Vital Signs Date Time Temp Pulse Resp B/P (MAP) Pulse Ox O2 Delivery O2 Flow Rate FiO2 04/01/17 20:33 04/01/17 19:52 51 17 100 Room Air 04/01/17 14:36 98.3 Orders Orders Urinalysis - C+S If Indicated (04/01/17 17:03) Complete Blood Count With Diff (04/01/17 17:03) Comprehensive Metabolic Panel (04/01/17 17:03) Lipase (04/01/17 17:03) Ed Urine Pregnancytest Poc (04/01/17 17:09) Sodium Chlor 0.9% 1000 Ml Inj (Ns 1000 M (04/01/17 17:45) Ondansetron Inj (Zofran Inj) (04/01/17 17:45) Ketorolac Inj (Toradol Inj) (04/01/17 17:45) Ketorolac Inj (Toradol Inj) (04/01/17 18:15) Ondansetron Inj (Zofran Inj) (04/01/17 18:15) Morphine Inj (Morphine Inj) (04/01/17 19:30) Labs Laboratory Tests Test 04/01/17 17:10 04/01/17 17:48 White Blood Count 9.1 TH/MM3 Red Blood Count 4.47 MIL/MM3 Hemoglobin 13.5 GM/DL Hematocrit 40.5 % Mean Corpuscular Volume 90.5 FL Mean Corpuscular Hemoglobin 30.2 PG Mean Corpuscular Hemoglobin Concent 33.4 % Red Cell Distribution Width 13.0 % Platelet Count 201 TH/MM3 Mean Platelet Volume 9.7 FL Neutrophils (%) (Auto) 57.0 % Lymphocytes (%) (Auto) 31.9 % Monocytes (%) (Auto) 7.0 % Eosinophils (%) (Auto) 2.9 % Basophils (%) (Auto) 1.2 % Neutrophils # (Auto) 5.2 TH/MM3 Lymphocytes # (Auto) 2.9 TH/MM3 Monocytes # (Auto) 0.6 TH/MM3 Eosinophils # (Auto) 0.3 TH/MM3 Basophils # (Auto) 0.1 TH/MM3 CBC Comment DIFF FINAL Differential Comment Blood Urea Nitrogen 6 MG/DL Creatinine 0.57 MG/DL Random Glucose 80 MG/DL Total Protein 7.6 GM/DL Albumin 3.8 GM/DL Calcium Level 8.5 MG/DL Alkaline Phosphatase 61 U/L Aspartate Amino Transf (AST/SGOT) 19 U/L Alanine Aminotransferase (ALT/SGPT) 20 U/L Total Bilirubin 0.4 MG/DL Sodium Level 141 MEQ/L Potassium Level 3.9 MEQ/L Chloride Level 110 MEQ/L Carbon Dioxide Level 26.2 MEQ/L Anion Gap 5 MEQ/L Estimat Glomerular Filtration Rate 125 ML/MIN Lipase 456 U/L Urine Color YELLOW Urine Turbidity HAZY Urine pH 7.0 Urine Specific [place] 1.020 Urine Protein TRACE mg/dL Urine Glucose (UA) NEG mg/dL Urine Ketones NEG mg/dL Urine Occult Blood LARGE Urine Nitrite NEG Urine Bilirubin NEG Urine Urobilinogen 2.0 MG/DL Urine Leukocyte Esterase NEG Urine RBC 2 /hpf Urine WBC 3 /hpf Urine Squamous Epithelial Cells 5 /hpf Urine Amorphous Sediment RARE Urine Bacteria RARE /hpf Urine Mucus MANY /lpf Microscopic Urinalysis Comment CULT NOT INDICATED MDM Medical Decision Making Medical Screen Exam Complete: Yes Emergency Medical Condition: Yes Differential Diagnosis Pancreatitis, gastritis, gastroenteritis, acute abdomen unlikely, chronic abdominal pain. Narrative Course Patient roomed emergency department, she localizes her pain into the upper quadrants. Work was obtained and has a completely normal CBC, chemistry shows an elevated lipase to 456 otherwise electrolytes are unremarkable LFTs within normal limits. UA shows large occult blood otherwise negative. Patient was initially given Toradol which did not significantly alter her pain. She was then given morphine states her pain felt better to go home. She was given a small prescription of Ultram. She was told to use these sparingly. Discussed at length returned ED criteria. We also discussion about CAT scan and I recommended against this time given how many times she's had a CAT scan her benign abdomen and it was unlikely to be fruitful in to the cause of her pain. Discussed her elevated lipase and at this time she is tolerating by mouth fluids that she brought from home and she is drinking him in the emergency department. Her pain seems well under control and she is already had a cholecystectomy. Diagnosis Primary Impression: Abdominal pain Med/Other Pt SpecificInfo: Prescription(s) given Scripts Ondansetron Odt (Zofran Odt) 4 Mg Tab 4 MG SL ONCE for Nausea/Vomiting, #1 TAB 0 Refills Prov: Dinesh Shane MD 04/01/17 Tramadol (Ultram) 50 Mg Tab 50 MG PO Q6H Y for PAIN, #20 TAB 0 Refills Prov: Dinesh Shane MD 04/01/17 Disposition: 01 DISCHARGE HOME Condition: Stable Dinesh Shane MD Apr 01, 2017 17:34
[2017-04-01 17:45] LABS: AUTOMATED NEUTROPHIL # 5.2 TH/MM3 (1.8-7.7); BASOPHIL # 0.1 TH/MM3 (0-0.2); BASOPHIL % 1.2 % (0.0-2.0); EOSINOPHIL # 0.3 TH/MM3 (0-0.4); EOSINOPHIL % 2.9 % (0.0-4.0); HEMATOCRIT 40.5 % (35.0-46.0); HEMO FLAGS DIFF FINAL; LYMPH % 31.9 % (9.0-44.0); LYMPHOCYTE # 2.9 TH/MM3 (1.0-4.8); MEAN CELL VOLUME 90.5 FL (80.0-100.0); MEAN CORPUSCULAR HEMOGLOBIN 30.2 PG (27.0-34.0); MEAN CORPUSCULAR HGB CONC 33.4 % (32.0-36.0); PLATELET COUNT 201 TH/MM3 (150-450); RED BLOOD COUNT 4.47 MIL/MM3 (4.00-5.30); WHITE BLOOD COUNT 9.1 TH/MM3 (4.0-11.0)
[2017-04-01] MEDS ORDERED: SODIUM CHLOR 0.9% 1000 ML INJ 1,000 ML IV ONE (17:45)
[2017-04-01] MEDS ORDERED: KETOROLAC TROMETHAMINE 30 MG/ML (IVP) VIAL IV PUSH ONE ×2 (17:45→18:15)
[2017-04-01] MEDS ORDERED: ONDANSETRON HCL 4 MG/2 ML VIAL IV PUSH ONE ×2 (17:45→18:15)
[2017-04-01 18:06] LABS: ALKALINE PHOSPHATASE 61 U/L (45-117); TOTAL BILIRUBIN ADULT 0.4 MG/DL (0.2-1.0)
[2017-04-01 18:11] LABS: ALT (GPT) 20 U/L (10-53); ANION GAP 5 MEQ/L (5-15); AST (GOT) 19 U/L (15-37); BICARBONATE 26.2 MEQ/L (21.0-32.0); BLOOD UREA NITROGEN 6 MG/DL (7-18); CHLORIDE 110 MEQ/L (98-107); GLOMERULAR FILTRATION RATE 125 ML/MIN (>89); SODIUM (NA) 141 MEQ/L (136-145)
[2017-04-01 18:12] LABS: POTASSIUM 3.9 MEQ/L (3.5-5.1)
[2017-04-01 18:18] VITALS: BP 126/70; PULSE 48; RESP 16; O2SAT 98
[2017-04-01 18:33] LABS: BACTERIA, URINE RARE /hpf; BLOOD, URINE LARGE (NEG); COMMENT (UR) CULT NOT INDICATED; CULTURE IF INDICATED CULT NOT INDICATED; GLUCOSE,URINE NEG (NEG); KETONE, URINE NEG (NEG); MUCUS URINE MANY /lpf (OCC); NITRITE,URINE NEG (NEG); SQUAMOUS EPITHELIAL CELL URINE 5 /hpf (0-5); URINE COLOR YELLOW (YELLW/STRAW)
[2017-04-01] MEDS ORDERED: MORPHINE SULFATE 8 MG/ML INJ IV PUSH ONE (19:30)
[2017-04-01 19:32] VITALS: BP 117/69; PULSE 48; RESP 16; O2SAT 100
[2017-04-01 19:52] VITALS: BP 105/56; PULSE 51; RESP 17; O2SAT 100
[2017-04-01] MEDS ORDERED: ZOFR4TAB3 SL (20:12)
[2017-04-01] MEDS ORDERED: ULTR50TA5 PO (20:12)
== END 2017-04-01 20:26 | disposition home or self-care (01) ==
LOC: NEPD 14:35
DX: R10.12 Left upper quadrant pain (principal); R10.11 Right upper quadrant pain; R11.2 Nausea with vomiting, unspecified; R19.7 Diarrhea, unspecified; F17.200 Nicotine dependence, unspecified, uncomplicated
CPT/HCPCS: 80053; 81001; 83690; 84703; 85025; 96361; 96374; 96375; 99284; J1885; J2270; J2405; J7030

== ENCOUNTER 2017-09-23 23:50 | Emergency (ER) | payer MEDICAID ==
[~2017-09-23] VITALS: Ht 152.4 cm; Wt 48.0 kg
[~2017-09-23 23:50] MED LIST changes: -CLIN150 PO; -DICL75TA PO; +TRAM50 PO; +ZOFR4TAB3 SL
[2017-09-23 23:51] VITALS: BP 128/71; PULSE 59; RESP 16; TEMP 98.5; O2SAT 98
== END 2017-09-24 04:00 | disposition left against medical advice (07) ==
LOC: NED 23:50
DX: R10.10 Upper abdominal pain, unspecified (principal)
CPT/HCPCS: 99281

== ENCOUNTER 2017-09-30 09:53 | Emergency (ER) | payer MEDICAID ==
[~2017-09-30] VITALS: Ht 152.4 cm; Wt 48.0 kg
[2017-09-30 10:04] VITALS: BP 121/76; PULSE 84; RESP 14; TEMP 98.7; O2SAT 100
--- NOTE | 2017-09-30 10:28 | PD ---
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 Patient denies any fevers, chills. Patient states that she took 3 home test and there was a faint line. She states she called the doctor and they told her that she may or may not be and if she was, she may have a very very low hormone level. The patient denies any vaginal bleeding. Patient denies any vaginal discharge. Patient denies any dysuria, urgency, frequency. She states that they did a test upfront and it was negative. The patient has had her gallbladder removed in the past. She still has her appendix. She denies any diarrhea. There are no other complaints at the time of my examination. PFSH Past Medical History Asthma: No Blood Disorders: No Cancer: No Cardiovascular Problems: No Diminished Hearing: No Endocrine: No Gastrointestinal Disorders: Yes (ACUTE CHOLECYSTITIS) Genitourinary: Yes (CURRENT UTI) Immune Disorder: No Implanted Vascular Access Dvce: No Musculoskeletal: Yes Neurologic: No Psychiatric: No Reproductive: No Respiratory: No Immunizations Current: Yes Pancreatitis: Yes Seizures: No Thyroid Disease: No Tetanus Vaccination: < 5 Years Influenza Vaccination: Yes ?: LMP: 08/12/17 : 2 Para: 1 Miscarriage: 1 Past Surgical History Section: Yes Cholecystectomy: Yes () Other Surgery: Yes (C SECTION, LEFT INGUINAL LYMPH NODE BIOPSY) Social History Alcohol Use: No Tobacco Use: Yes (08/05 ppd) Substance Use: No Allergies-Medications (Allergen,Severity, Reaction): Coded Allergies: No Known Allergies (Verified Allergy, Unknown, 09/30/17) Reported Meds & Prescriptions Reported Meds & Active Scripts Active No Active Prescriptions or Reported Medications Review of Systems Except as stated in HPI: all other systems reviewed are Neg General / Constitutional: No: Fever, Chills HENT: No: Headaches, Neck Pain Cardiovascular: No: Chest Pain or Discomfort, Palpitations Respiratory: No: Cough, Shortness of Breath Gastrointestinal: Positive: Nausea, Abdominal Pain (Right lower/middle abdominal area), No: Vomiting, Diarrhea, Hematemesis, Hematochezia Genitourinary: No: Frequency, Dysuria, Pelvic Pain, Discharge, Vaginal Bleeding Musculoskeletal: No: Weakness, Pain Neurologic: No: Weakness, Dizziness, Headache Psychiatric: No: Substance Abuse Physical Exam Narrative GENERAL: Well-nourished, well-developed patient, in no acute respiratory distress. SKIN: Focused skin assessment warm/dry. HEAD: Normocephalic/atraumatic. EYES: No scleral icterus. No injection or drainage. NECK: Supple, trachea midline. No JVD or lymphadenopathy. CARDIOVASCULAR: Regular rate and rhythm without murmurs, gallops, or rubs. RESPIRATORY: Breath sounds equal bilaterally. No accessory muscle use. GASTROINTESTINAL: Abdomen soft, nondistended. The patient has tenderness to palpation in the right lower quadrant. There is positive guarding with no rebound. No pulsatile masses. No lower midline tenderness. MUSCULOSKELETAL: No cyanosis, or edema. BACK: Nontender without obvious deformity. No CVA tenderness. NEUROLOGICAL: Awake and alert. Cranial nerves II through XII intact. Motor and sensory grossly within normal limits. Five out of 5 muscle strength in all muscle groups. Normal speech. Data Data Last Documented VS Vital Signs Date Time Temp Pulse Resp B/P (MAP) Pulse Ox O2 Delivery O2 Flow Rate FiO2 09/30/17 10:31 98 Room Air 09/30/17 10:11 16 09/30/17 10:04 98.7 84 121/76 (91) Orders Orders Complete Blood Count With Diff (09/30/17 10:09) Urinalysis - C+S If Indicated (09/30/17 10:09) Beta Hcg (Quant/Titer) (09/30/17 10:09) Iv Access Insert/Monitor (09/30/17 10:09) Ecg Monitoring (09/30/17 10:09) Oximetry (09/30/17 10:09) Type And Screen (09/30/17 10:09) Ed Urine Pregnancytest Poc (09/30/17 10:09) Us Pelvis (Ques Pr/Ect)W Trans (09/30/17 11:29) Labs Laboratory Tests Test 09/30/17 10:25 White Blood Count 7.5 TH/MM3 Red Blood Count 4.61 MIL/MM3 Hemoglobin 14.0 GM/DL Hematocrit 40.9 % Mean Corpuscular Volume 88.8 FL Mean Corpuscular Hemoglobin 30.3 PG Mean Corpuscular Hemoglobin Concent 34.1 % Red Cell Distribution Width 13.6 % Platelet Count 225 TH/MM3 Mean Platelet Volume 9.3 FL Neutrophils (%) (Auto) 57.7 % Lymphocytes (%) (Auto) 29.0 % Monocytes (%) (Auto) 9.4 % Eosinophils (%) (Auto) 2.8 % Basophils (%) (Auto) 1.1 % Neutrophils # (Auto) 4.3 TH/MM3 Lymphocytes # (Auto) 2.2 TH/MM3 Monocytes # (Auto) 0.7 TH/MM3 Eosinophils # (Auto) 0.2 TH/MM3 Basophils # (Auto) 0.1 TH/MM3 CBC Comment DIFF FINAL Differential Comment Urine Color LIGHT-YELLOW Urine Turbidity CLEAR Urine pH 6.5 Urine Specific [place] 1.006 Urine Protein NEG mg/dL Urine Glucose (UA) NEG mg/dL Urine Ketones NEG mg/dL Urine Occult Blood NEG Urine Nitrite NEG Urine Bilirubin NEG Urine Urobilinogen LESS THAN 2.0 MG/DL Urine Leukocyte Esterase NEG Urine RBC LESS THAN 1 /hpf Urine WBC LESS THAN 1 /hpf Urine Squamous Epithelial Cells 3 /hpf Urine Bacteria RARE /hpf Urine Mucus FEW /lpf Microscopic Urinalysis Comment CULT NOT INDICATED Human Chorionic Gonadotropin, Quant 75 MIU/ML MDM Medical Decision Making Medical Screen Exam Complete: Yes Emergency Medical Condition: Yes Interpretation(s) Last Impressions Pelvis Ultrasound 09/30/17 1129 Signed Impressions: Service Date/Time: Saturday, September 30, 2017 12:36 - CONCLUSION: 1. of unknown location. There is a thickened endometrium but no gestational sac is identified within the uterus. Additionally, there are no features to indicate an ectopic . Suggest clinical followup and imaging followup, as needed. 2. There is a small volume of free fluid in the pelvis which appears simple. 3. Complex cystic lesion within the left ovary containing a septation and measuring up to 5.3 cm. Suggest followup imaging to confirm resolution. Mohan Gasca MD Differential Diagnosis Ectopic versus appendicitis versus pelvic infection versus kidney stone Narrative Course 31-year-old Ab1 who has a positive test, presents today with complaints of right lower quadrant pain. The patient states that she had 3 positive tests however there was a faint line confirming the . She states she called her doctor who told her that she was either early in or had an abnormal . She denies any vaginal bleeding or discharge. Beta-hCG here was 75. Bedside pelvic ultrasound reads no evidence of intrauterine . There is a left complex ovarian cyst. Right adnexa was clear without evidence of abnormalities. There was small amount of free fluid in the pelvis which appears physiological. I discussed the findings of all this with the patient and told her that this could be an early intrauterine versus a ectopic versus a missed . She will return in 2 days for repeat beta-hCG. She is instructed to have pelvic rest and use Tylenol for discomfort. She is also instructed to return if she develops any increased pain, vaginal bleeding, dizziness, or any other reason that concerns her. Looking through the records, patient is Rh+. Diagnosis Primary Impression: Abdominal pain Additional Impression: Positive test Additional Instructions: Return in 2 days for repeat hormone level. Review experience increased pain, vaginal bleeding, dizziness, or any other reason, please return immediately for evaluation. Pelvic rest. Tylenol only for discomfort. He will need an outpatient ultrasound of the left ovary to evaluate for completion and resolution of the complex cystic structure. Scripts No Active Prescriptions or Reported Meds Disposition: 01 DISCHARGE HOME Condition: Stable Levi Flores MD Sep 30, 2017 10:28
[2017-09-30 10:31] VITALS: O2SAT 98
[2017-09-30 10:41] LABS: AUTOMATED NEUTROPHIL # 4.3 TH/MM3 (1.8-7.7); BASOPHIL # 0.1 TH/MM3 (0-0.2); BASOPHIL % 1.1 % (0.0-2.0); EOSINOPHIL # 0.2 TH/MM3 (0-0.4); EOSINOPHIL % 2.8 % (0.0-4.0); HEMATOCRIT 40.9 % (35.0-46.0); LYMPHOCYTE # 2.2 TH/MM3 (1.0-4.8); MEAN CELL VOLUME 88.8 FL (80.0-100.0); MEAN CORPUSCULAR HEMOGLOBIN 30.3 PG (27.0-34.0); MEAN CORPUSCULAR HGB CONC 34.1 % (32.0-36.0); MEAN PLATELET VOLUME 9.3 FL (7.0-11.0); MONO % 9.4 % (0.0-8.0); MONOCYTE # 0.7 TH/MM3 (0-0.9); NEUT % 57.7 % (16.0-70.0); PLATELET COUNT 225 TH/MM3 (150-450); RED BLOOD COUNT 4.61 MIL/MM3 (4.00-5.30); RED CELL DISTRIBUTION WIDTH 13.6 % (11.6-17.2); WHITE BLOOD COUNT 7.5 TH/MM3 (4.0-11.0)
[2017-09-30 11:00] LABS: BACTERIA, URINE RARE /hpf; BILIRUBIN, URINE NEG (NEG); BLOOD, URINE NEG (NEG); GLUCOSE,URINE NEG (NEG); KETONE, URINE NEG (NEG); MUCUS URINE FEW /lpf (OCC); NITRITE,URINE NEG (NEG); PH, URINE 6.5 (5.0-8.5); SQUAMOUS EPITHELIAL CELL URINE 3 /hpf (0-5); URINE COLOR LIGHT-YELLOW (YELLW/STRAW); URINE LEUKOCYTE ESTERASE NEG (NEG)
--- NOTE | 2017-09-30 13:34 | RADRPT ---
EXAM DATE/TIME: 09/30/2017 12:36 [facility] COMPARISON: CT ABDOMEN & PELVIS W CONTRAST, January 28, 2017, 15:23. INDICATIONS : Right lower quadrant pain. LAB(S): Beta-hC MEDICAL HISTORY : Cholecystitis. Pancreatitis. Anxiety. UTI. SURGICAL HISTORY : Cholecystectomy. section. Left inguinal lymph node Bx. ENCOUNTER: Initial ACUITY: 4-6 days PAIN SCORE: 5/10 LOCATION: Right pelvis MEASUREMENTS: UTERUS: 8.1 x 6.6 x 5.3 cm ENDOMETRIAL STRIPE: 10 mm RIGHT OVARY: 2.5 x 2.2 x 1.5 cm LEFT OVARY: 5.5 x 6.0 x 4.6 cm FREE FLUID: Yes Bilateral adnexa, worst on right FINDINGS: UTERUS: The uterus is retroverted. Myometrium is homogeneous. Endometrium is heterogeneous but no gestational sac is visualized. There are nabothian cysts within the cervix. RIGHT OVARY: Follicles are present. LEFT OVARY: There is a cystic lesion with a septation within the left ovary measuring 4.7 x 5.3 x 3.1 cm. MISCELLANEOUS: There is a small volume of simple appearing free fluid within the pelvis . CONCLUSION: 1. of unknown location. There is a thickened endometrium but no gestational sac is identifi ed within the uterus. Additionally, there are no features to indicate an ectopic . Suggest c linical followup and imaging followup, as needed. 2. There is a small volume of free fluid in the pelvis which appears simple. 3. Complex cystic lesion within the left ovary containing a septation and measuring up to 5.3 cm. Sug gest followup imaging to confirm resolution. Mohan Gasca MD on September 30, 2017 at 13:29 Board Certified Radiologist. This report was verified electronically.
== END 2017-09-30 15:00 | disposition home or self-care (01) ==
LOC: NEPE 09:53
DX: O26.899 Other specified pregnancy related conditions, unspecified trimester (principal); R10.9 Unspecified abdominal pain; O99.330 Smoking (tobacco) complicating pregnancy, unspecified trimester
CPT/HCPCS: 76700; 76817; 81001; 84702; 84703; 85025; 86850; 86900; 86901

== ENCOUNTER 2017-10-02 08:48 | Emergency (ER) | payer MEDICAID ==
[~2017-10-02] VITALS: Ht 152.4 cm; Wt 49.0 kg
[2017-10-02 09:04] VITALS: BP 111/73; PULSE 64; RESP 16; TEMP 98.5; O2SAT 100
--- NOTE | 2017-10-02 09:20 | PD ---
HPI Chief Complaint: Related Problem Time Seen by Provider: 09:12 Travel History International Travel<30 days: No Contact w/Intl Traveler<30days: No Traveled to known affect area: No History of Present Illness HPI 32-year-old female patient recently seen on 30 September, with abdominal cramping , was shown to be not on urine exam, but with serum hCG had a positive of 75. Patient states she has no cramping or vaginal bleeding today. She was asked to return today for repeat hCG. Her previous ultrasound showed a complex ovarian cyst. The plan was to follow-up with an outpatient ultrasound with OB/ [employer] SALES REPRESENTATIVE. She is having no pain or nausea or vomiting. She has no known drug allergies. PFSH Past Medical History Asthma: No Blood Disorders: No Cancer: No Cardiovascular Problems: No Diminished Hearing: No Endocrine: No Gastrointestinal Disorders: Yes (ACUTE CHOLECYSTITIS) Genitourinary: Yes (CURRENT UTI) Immune Disorder: No Implanted Vascular Access Dvce: No Musculoskeletal: Yes Neurologic: No Psychiatric: No Reproductive: No Respiratory: No Immunizations Current: Yes Pancreatitis: Yes Seizures: No Thyroid Disease: No ?: : 2 Para: 1 Miscarriage: 1 Past Surgical History Section: Yes Cholecystectomy: Yes () Other Surgery: Yes (C SECTION, LEFT INGUINAL LYMPH NODE BIOPSY) Social History Alcohol Use: No Tobacco Use: Yes (08/05 ppd) Substance Use: No Allergies-Medications (Allergen,Severity, Reaction): Coded Allergies: No Known Allergies (Verified Allergy, Unknown, 10/02/17) Reported Meds & Prescriptions Reported Meds & Active Scripts Active No Active Prescriptions or Reported Medications Review of Systems Except as stated in HPI: all other systems reviewed are Neg General / Constitutional: No: Fever Eyes: No: Visual changes HENT: No: Headaches Cardiovascular: No: Chest Pain or Discomfort Respiratory: No: Shortness of Breath Gastrointestinal: No: Abdominal Pain Genitourinary: No: Dysuria Musculoskeletal: No: Pain Skin: No Rash Neurologic: No: Weakness Psychiatric: No: Depression Endocrine: No: Polydipsia Hematologic/Lymphatic: No: Easy Bruising Physical Exam Narrative GENERAL: Patient is in no acute distress. SKIN: Warm and dry. Normal color. Normal turgor. HEAD: Atraumatic. Normocephalic. EYES: Pupils equal and round. No scleral icterus. No injection or drainage. ENT: No nasal bleeding or discharge. Mucous membranes pink and moist. Pharynx is clear. NECK: Trachea midline. Supple CARDIOVASCULAR: Regular rate and rhythm. RESPIRATORY: No accessory muscle use. Clear to auscultation. Breath sounds equal bilaterally. GASTROINTESTINAL: Abdomen soft, non-tender, nondistended. Hepatic and splenic margins not palpable. MUSCULOSKELETAL: Extremities without clubbing, cyanosis, or edema. No obvious deformities. NEUROLOGICAL: Awake and alert. No obvious cranial nerve deficits. Motor grossly within normal limits. Five out of 5 muscle strength in the arms and legs. Normal speech. PSYCHIATRIC: Appropriate mood and affect; insight and judgment normal. Data Data Last Documented VS Vital Signs Date Time Temp Pulse Resp B/P (MAP) Pulse Ox O2 Delivery O2 Flow Rate FiO2 10/02/17 09:04 98.5 64 16 111/73 (86) 100 Orders Orders Beta Hcg (Quant/Titer) (10/02/17 09:14) Labs Laboratory Tests Test 10/02/17 09:15 Human Chorionic Gonadotropin, Quant 216 MIU/ML [facility] Medical Decision Making Medical Screen Exam Complete: Yes Emergency Medical Condition: Yes Medical Record Reviewed: Yes Differential Diagnosis Positive serum hCG. Previous abdominal cramping. Early versus threatened miscarriage. Narrative Course Patient is medically stable at time of exam. Serum hCG is ordered. Today serum hCG is 215. Patient to follow-up with [employer] REPRESENTATIVE. Patient can return with any symptoms of abdominal pain, cramping, vaginal bleeding etc. Diagnosis Primary Impression: Qualified Codes: Z3A.01 - Less than 8 weeks gestation of Referrals: [place] [facility] Patient Instructions: Abdominal Pain in (ED), General Instructions Additional Instructions: Patient is medically stable at time of exam. Serum hCG is ordered. Today serum hCG is 215. Patient to follow-up with [employer] SALES REPRESENTATIVE. Patient can return with any symptoms of abdominal pain, cramping, vaginal bleeding etc. Med/Other Pt SpecificInfo: Prescription(s) given Scripts No Active Prescriptions or Reported Meds Disposition: 01 DISCHARGE HOME Condition: Stable Brett Clark Oct 02, 2017 09:20
[2017-10-02] MEDS ORDERED: PREN29TA PO (10:08)
== END 2017-10-02 10:52 | disposition home or self-care (01) ==
LOC: NEPD 08:48
DX: O26.891 Other specified pregnancy related conditions, first trimester (principal); Z3A.01 Less than 8 weeks gestation of pregnancy
CPT/HCPCS: 84702; 99283

== ENCOUNTER 2017-10-15 18:11 | Emergency (ER) | payer MEDICAID ==
[~2017-10-15] VITALS: Ht 152.4 cm; Wt 49.0 kg
[~2017-10-15 18:11] MED LIST changes: -DICY10 PO; +PREN29TA PO; -TRAM50 PO; -ZOFR4TAB3 SL; -ZOFR8TAB4 SL
[2017-10-15 18:27] VITALS: BP 124/57; PULSE 93; RESP 16; TEMP 99; O2SAT 100
== END 2017-10-15 20:15 | disposition left against medical advice (07) ==
LOC: NEPD 18:11 → NED 20:15
DX: R50.9 Fever, unspecified (principal)
CPT/HCPCS: 99281

== ENCOUNTER 2017-11-13 10:53 | Emergency (ER) | payer MEDICAID ==
[~2017-11-13] VITALS: Ht 162.6 cm; Wt 60.0 kg
[2017-11-13 10:57] VITALS: BP 129/65; PULSE 86; RESP 17; TEMP 99; O2SAT 99
--- NOTE | 2017-11-13 12:22 | PD ---
HPI Chief Complaint: GI Complaint Time Seen by Provider: 11:56 Travel History International Travel<30 days: No Contact w/Intl Traveler<30days: No Traveled to known affect area: No History of Present Illness HPI Patient comes in complaining of some lower suprapubic area cramping associated with diarrhea and some nausea only one episode of vomiting. Patient denies any associated symptoms such as fever, rash, headache, neck pain, chest pain, back pain, flank pain, runny nose, sore throat, or cough. Patient denies any alleviating or aggravating factors. Patient states that she has had miscarriages before and is concerned that may be is negative the beginning of 1. However the patient denies having absolutely any type of vaginal bleeding or spotting. PFSH Past Medical History Asthma: No Blood Disorders: No Cancer: No Cardiovascular Problems: No Diminished Hearing: No Endocrine: No Gastrointestinal Disorders: Yes (ACUTE CHOLECYSTITIS) Genitourinary: Yes ( ) Immune Disorder: No Implanted Vascular Access Dvce: No Musculoskeletal: Yes Neurologic: No Psychiatric: No Reproductive: No Respiratory: No Immunizations Current: Yes Pancreatitis: Yes Seizures: No Thyroid Disease: No ?: LMP: 08/2017 : 5 Para: 1 Miscarriage: 3 Past Surgical History Section: Yes Cholecystectomy: Yes () Other Surgery: Yes (C SECTION, LEFT INGUINAL LYMPH NODE BIOPSY) Social History Alcohol Use: No Tobacco Use: Yes (08/05 ppd) Substance Use: No Allergies-Medications (Allergen,Severity, Reaction): Coded Allergies: No Known Allergies (Verified Allergy, Unknown, 11/13/17) Reported Meds & Prescriptions Reported Meds & Active Scripts Active Plus Iron 29-1 mg ( Vit-Iron Carbonyl) 29 Mg Iron-1 Mg Tab 1 Tab PO DAILY Review of Systems General / Constitutional: No: Fever Eyes: No: Visual changes HENT: No: Headaches Cardiovascular: No: Chest Pain or Discomfort Respiratory: No: Shortness of Breath Gastrointestinal: Positive: Nausea, Diarrhea, Abdominal Pain Genitourinary: No: Dysuria Musculoskeletal: No: Pain Skin: No Rash Neurologic: No: Weakness Psychiatric: No: Depression Endocrine: No: Polydipsia Hematologic/Lymphatic: No: Easy Bruising Physical Exam Narrative GENERAL: SKIN: Warm and dry. HEAD: Atraumatic. Normocephalic. EYES: Pupils equal and round. No scleral icterus. No injection or drainage. ENT: No nasal bleeding or discharge. Mucous membranes pink and moist. NECK: Trachea midline. No JVD. CARDIOVASCULAR: Regular rate and rhythm. RESPIRATORY: No accessory muscle use. Clear to auscultation. Breath sounds equal bilaterally. GASTROINTESTINAL: Abdomen soft, non-tender, nondistended. MUSCULOSKELETAL: Extremities without clubbing, cyanosis, or edema. No obvious deformities. NEUROLOGICAL: Awake and alert. No obvious cranial nerve deficits. Motor grossly within normal limits. Five out of 5 muscle strength in the arms and legs. Normal speech. PSYCHIATRIC: Appropriate mood and affect; insight and judgment normal. Data Data Last Documented VS Vital Signs Date Time Temp Pulse Resp B/P (MAP) Pulse Ox O2 Delivery O2 Flow Rate FiO2 11/13/17 10:57 99.0 86 17 129/65 (86) 99 Orders Orders Complete Blood Count With Diff (11/13/17 11:03) Comprehensive Metabolic Panel (11/13/17 11:03) Urinalysis - C+S If Indicated (11/13/17 11:03) Iv Access Insert/Monitor (11/13/17 11:03) Oxygen Administration (11/13/17 11:03) Oximetry (11/13/17 11:03) Lipase (11/13/17 11:03) Labs Laboratory Tests Test 11/13/17 12:05 White Blood Count 8.3 TH/MM3 Red Blood Count 4.47 MIL/MM3 Hemoglobin 13.4 GM/DL Hematocrit 39.8 % Mean Corpuscular Volume 89.1 FL Mean Corpuscular Hemoglobin 30.0 PG Mean Corpuscular Hemoglobin Concent 33.6 % Red Cell Distribution Width 13.8 % Platelet Count 214 TH/MM3 Mean Platelet Volume 9.0 FL Neutrophils (%) (Auto) 64.9 % Lymphocytes (%) (Auto) 24.4 % Monocytes (%) (Auto) 9.1 % Eosinophils (%) (Auto) 1.0 % Basophils (%) (Auto) 0.6 % Neutrophils # (Auto) 5.4 TH/MM3 Lymphocytes # (Auto) 2.0 TH/MM3 Monocytes # (Auto) 0.8 TH/MM3 Eosinophils # (Auto) 0.1 TH/MM3 Basophils # (Auto) 0.1 TH/MM3 CBC Comment DIFF FINAL Differential Comment Urine Color YELLOW Urine Turbidity HAZY Urine pH 6.5 Urine Specific [place] 1.024 Urine Protein TRACE mg/dL Urine Glucose (UA) NEG mg/dL Urine Ketones NEG mg/dL Urine Occult Blood NEG Urine Nitrite NEG Urine Bilirubin NEG Urine Urobilinogen 4.0 MG/DL Urine Leukocyte Esterase NEG Urine RBC 2 /hpf Urine WBC 1 /hpf Urine Squamous Epithelial Cells 2 /hpf Urine Bacteria OCC /hpf Urine Mucus MOD /lpf Microscopic Urinalysis Comment CULT NOT INDICATED Blood Urea Nitrogen 8 MG/DL Creatinine 0.46 MG/DL Random Glucose 73 MG/DL Total Protein 7.5 GM/DL Albumin 3.8 GM/DL Calcium Level 8.7 MG/DL Alkaline Phosphatase 48 U/L Aspartate Amino Transf (AST/SGOT) 24 U/L Alanine Aminotransferase (ALT/SGPT) 37 U/L Total Bilirubin 0.5 MG/DL Sodium Level 139 MEQ/L Potassium Level 3.3 MEQ/L Chloride Level 107 MEQ/L Carbon Dioxide Level 24.3 MEQ/L Anion Gap 8 MEQ/L Estimat Glomerular Filtration Rate 159 ML/MIN Lipase 112 U/L [facility] Medical Decision Making Medical Screen Exam Complete: Yes Emergency Medical Condition: Yes Medical Record Reviewed: Yes Differential Diagnosis Gastroenteritis versus hepatitis versus hepatitis versus UTI versus related such as help syndrome versus preeclampsia versus eclampsia Narrative Course Leukocytosis no anemia no left shift, and normal platelet count Normal electrolytes, normal kidney functions. UA does show some sterile pyuria, but not a full UTI. Diagnosis Primary Impression: Sterile pyuria Patient Instructions: General Instructions Scripts Nitrofurantoin Monohydrate Macrocrystals (Macrobid) 100 Mg Capsule 100 MG PO BID for Infection for 7 Days, #14 CAP 0 Refills Prov: Yoav Reese MD 11/13/17 Disposition: 01 DISCHARGE HOME Condition: Stable Yoav Reese MD Nov 13, 2017 12:22
[2017-11-13 12:37] LABS: AUTOMATED NEUTROPHIL # 5.4 TH/MM3 (1.8-7.7); BASOPHIL # 0.1 TH/MM3 (0-0.2); BASOPHIL % 0.6 % (0.0-2.0); EOSINOPHIL # 0.1 TH/MM3 (0-0.4); HEMATOCRIT 39.8 % (35.0-46.0); HEMOGLOBIN 13.4 GM/DL (11.6-15.3); LYMPH % 24.4 % (9.0-44.0); MEAN CELL VOLUME 89.1 FL (80.0-100.0); MEAN CORPUSCULAR HGB CONC 33.6 % (32.0-36.0); MONO % 9.1 % (0.0-8.0); MONOCYTE # 0.8 TH/MM3 (0-0.9); NEUT % 64.9 % (16.0-70.0); PLATELET COUNT 214 TH/MM3 (150-450); RED BLOOD COUNT 4.47 MIL/MM3 (4.00-5.30); RED CELL DISTRIBUTION WIDTH 13.8 % (11.6-17.2); WHITE BLOOD COUNT 8.3 TH/MM3 (4.0-11.0)
[2017-11-13 12:41] LABS: BACTERIA, URINE OCC /hpf; BILIRUBIN, URINE NEG (NEG); BLOOD, URINE NEG (NEG); GLUCOSE,URINE NEG (NEG); KETONE, URINE NEG (NEG); MUCUS URINE MOD /lpf (OCC); NITRITE,URINE NEG (NEG); PH, URINE 6.5 (5.0-8.5); SQUAMOUS EPITHELIAL CELL URINE 2 /hpf (0-5); URINE COLOR YELLOW (YELLW/STRAW); URINE LEUKOCYTE ESTERASE NEG (NEG)
[2017-11-13 12:55] LABS: ALBUMIN 3.8 GM/DL (3.4-5.0); AST (GOT) 24 U/L (15-37); BICARBONATE 24.3 MEQ/L (21.0-32.0); BLOOD UREA NITROGEN 8 MG/DL (7-18); CALCIUM 8.7 MG/DL (8.5-10.1); CHLORIDE 107 MEQ/L (98-107); CREATININE 0.46 MG/DL (0.50-1.00); GLOMERULAR FILTRATION RATE 159 ML/MIN (>89); GLUCOSE,RANDOM 73 MG/DL (74-106); SODIUM (NA) 139 MEQ/L (136-145)
[2017-11-13 12:58] LABS: ALKALINE PHOSPHATASE 48 U/L (45-117); ALT (GPT) 37 U/L (10-53); TOTAL BILIRUBIN ADULT 0.5 MG/DL (0.2-1.0); TOTAL PROTEIN 7.5 GM/DL (6.4-8.2)
[2017-11-13] MEDS ORDERED: MACR100C2 PO (13:04)
[2017-11-13] MEDS ORDERED: ZOFR4TAB3 SL (13:17)
== END 2017-11-13 13:31 | disposition home or self-care (01) ==
LOC: NEPD 10:53
DX: N39.0 Urinary tract infection, site not specified (principal); R19.7 Diarrhea, unspecified; F17.200 Nicotine dependence, unspecified, uncomplicated
CPT/HCPCS: 80053; 81001; 83690; 85025; 99283

== ENCOUNTER 2017-12-18 08:15 | Inpatient (IN) | payer MEDICAID ==
[~2017-12-18] VITALS: Ht 152.4 cm; Wt 55.0 kg
[~2017-12-18 08:15] MED LIST changes: +MACR100C2 PO; +ZOFR4TAB3 SL
[2017-12-18 08:17] VITALS: BP 142/67; PULSE 80; RESP 16; TEMP 98.2; O2SAT 100
[2017-12-18 08:29] VITALS: BP 119/58; PULSE 70; RESP 18; O2SAT 99
[2017-12-18] MEDS ORDERED: ACETAMINOPHEN 500 MG CPLT PO ONE (09:00)
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
[2017-12-18 09:38] VITALS: RESP 18; O2SAT 98
[2017-12-18 09:51] LABS: AUTOMATED NEUTROPHIL # 9.1 TH/MM3 (1.8-7.7); BASOPHIL # 0.1 TH/MM3 (0-0.2); BASOPHIL % 0.6 % (0.0-2.0); EOSINOPHIL # 0.1 TH/MM3 (0-0.4); EOSINOPHIL % 0.8 % (0.0-4.0); HEMATOCRIT 31.9 % (35.0-46.0); HEMOGLOBIN 10.9 GM/DL (11.6-15.3); LYMPH % 14.1 % (9.0-44.0); LYMPHOCYTE # 1.7 TH/MM3 (1.0-4.8); MEAN CELL VOLUME 90.4 FL (80.0-100.0); MEAN CORPUSCULAR HEMOGLOBIN 30.8 PG (27.0-34.0); MEAN PLATELET VOLUME 10.3 FL (7.0-11.0); MONO % 7.9 % (0.0-8.0); MONOCYTE # 0.9 TH/MM3 (0-0.9); NEUT % 76.6 % (16.0-70.0); PLATELET COUNT 149 TH/MM3 (150-450); RED BLOOD COUNT 3.53 MIL/MM3 (4.00-5.30); RED CELL DISTRIBUTION WIDTH 13.8 % (11.6-17.2); WHITE BLOOD COUNT 11.9 TH/MM3 (4.0-11.0)
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
[2017-12-18 09:55] VITALS: BP 105/60; PULSE 73; RESP 18; O2SAT 98
[2017-12-18 09:58] LABS: BILIRUBIN, URINE NEG (NEG); BLOOD, URINE NEG (NEG); GLUCOSE,URINE NEG (NEG); KETONE, URINE NEG (NEG); MUCUS URINE FEW /lpf (OCC); NITRITE,URINE NEG (NEG); PH, URINE 7.5 (5.0-8.5); SQUAMOUS EPITHELIAL CELL URINE 1 /hpf (0-5); URINE COLOR YELLOW (YELLW/STRAW); URINE LEUKOCYTE ESTERASE NEG (NEG)
[2017-12-18 10:14] LABS: ALKALINE PHOSPHATASE 46 U/L (45-117); TOTAL BILIRUBIN ADULT 0.5 MG/DL (0.2-1.0); TOTAL PROTEIN 6.7 GM/DL (6.4-8.2)
[2017-12-18] MEDS ORDERED: AMPICILLIN-SULBACTAM INJ 3 GM in SODIUM CHLORIDE 0.9% INJ 100 ML IV ONE (10:15)
[2017-12-18 10:29] LABS: ALT (GPT) 21 U/L (10-53); AST (GOT) 29 U/L (15-37); BICARBONATE 21.7 MEQ/L (21.0-32.0); BLOOD UREA NITROGEN 5 MG/DL (7-18); CALCIUM 8.4 MG/DL (8.5-10.1); CHLORIDE 107 MEQ/L (98-107); CREATININE 0.35 MG/DL (0.50-1.00); GLOMERULAR FILTRATION RATE 219 ML/MIN (>89); GLUCOSE,RANDOM 87 MG/DL (74-106); SODIUM (NA) 138 MEQ/L (136-145)
[2017-12-18] MEDS ORDERED: SODIUM CHLORIDE 0.9% FLUSH 10 ML FLUSH IV FLUSH PRN (12:00)
[2017-12-18] MEDS: SODIUM CHLORIDE 0.9% FLUSH 10 ML FLUSH IV FLUSH SCH (12:07)
[2017-12-18] MEDS ORDERED: ONDANSETRON ODT 4 MG TAB SL PRN (12:15)
[2017-12-18] MEDS: LACTATED RINGER'S 1000 ML INJ 1,000 ML IV SCH ×2 (12:57→21:31)
[2017-12-18 14:17] VITALS: BP 109/56; PULSE 69; RESP 16; TEMP 98.6; O2SAT 98
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
[2017-12-18] MEDS ORDERED: BUPIVACAINE HCL PF 0.25% 30 ML VIAL ONE (16:57)
[2017-12-18] MEDS ORDERED: SODIUM BICARBONATE 8.4% INJ 50 MEQ/50 ML SYR ONE (16:57)
[2017-12-18] MEDS ORDERED: DEXAMETHASONE SOD PHOS 4 MG/ML VIAL ONE (16:57)
[2017-12-18] MEDS ORDERED: LIDOCAINE HCL 2% 20 ML VIAL ONE (16:58)
[2017-12-18] MEDS ORDERED: SODIUM CHLORID 0.9% 500 ML IV PRN (17:15)
[2017-12-18] MEDS ORDERED: METOPROLOL TARTRATE 25 MG TAB PO PRN (17:15)
[2017-12-18] MEDS: AMPICILLIN-SULBACTAM INJ 3 GM in SODIUM CHLORIDE 0.9% INJ 100 ML IV SCH ×2 (17:15→21:22)
[2017-12-18] MEDS ORDERED: POVIDONE IODINE 5% (ANTISEPSIS KIT) 4 APPLICATIONS EACH NARE PRN (17:15)
[2017-12-18] MEDS ORDERED: CHLORHEXIDINE GLUCONATE 2 % 1 PACK (2 CLOTHS) TOPICAL PRN (17:15)
[2017-12-18] MEDS ORDERED: LACTATED RINGER'S 1000 ML IV PRN (17:15)
[2017-12-18] MEDS ORDERED: PROPOFOL 200 MG/20 ML AMP ONE (17:33)
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
[2017-12-18 20:00] VITALS: BP 114/55; PULSE 74; RESP 18; TEMP 97.9; O2SAT 98
[2017-12-18] MEDS: metroNIDAZOLE 500 MG TAB PO SCH (21:22)
[2017-12-18] MEDS ORDERED: DO NOT ADM ANY ANTICOAGULANT DRUGS PRN (21:30)
[2017-12-19] VITALS: BP 107/51; PULSE 68; RESP 18; TEMP 98.8; O2SAT 98
[2017-12-19] MEDS: ACETAMINOPHEN 500 MG CPLT PO PRN ×2 (03:19→07:42)
[2017-12-19] MEDS: LACTATED RINGER'S 1000 ML INJ 1,000 ML IV SCH ×2 (03:20→15:21)
[2017-12-19] MEDS: AMPICILLIN-SULBACTAM INJ 3 GM in SODIUM CHLORIDE 0.9% INJ 100 ML IV SCH ×4 (03:20→21:25)
[2017-12-19 04:00] VITALS: BP 105/53; PULSE 59; RESP 18; TEMP 98.4; O2SAT 100
[2017-12-19 05:08] LABS: AUTOMATED NEUTROPHIL # 7.7 TH/MM3 (1.8-7.7); BASOPHIL % 0.5 % (0.0-2.0); EOSINOPHIL # 0.1 TH/MM3 (0-0.4); EOSINOPHIL % 0.6 % (0.0-4.0); HEMATOCRIT 31.1 % (35.0-46.0); HEMOGLOBIN 10.7 GM/DL (11.6-15.3); LYMPH % 14.8 % (9.0-44.0); LYMPHOCYTE # 1.5 TH/MM3 (1.0-4.8); MEAN CORPUSCULAR HEMOGLOBIN 30.9 PG (27.0-34.0); MEAN CORPUSCULAR HGB CONC 34.3 % (32.0-36.0); MEAN PLATELET VOLUME 10.1 FL (7.0-11.0); MONO % 7.3 % (0.0-8.0); MONOCYTE # 0.7 TH/MM3 (0-0.9); NEUT % 76.8 % (16.0-70.0); PLATELET COUNT 152 TH/MM3 (150-450); RED BLOOD COUNT 3.45 MIL/MM3 (4.00-5.30); RED CELL DISTRIBUTION WIDTH 13.7 % (11.6-17.2); WHITE BLOOD COUNT 10.1 TH/MM3 (4.0-11.0)
[2017-12-19 05:30] LABS: CALCIUM 8.2 MG/DL (8.5-10.1); CREATININE 0.38 MG/DL (0.50-1.00)
[2017-12-19] MEDS ORDERED: POTASSIUM CHLORIDE 20 MEQ CONTROLLED RELEASE TAB PO ONE (06:45)
[2017-12-19 08:15] VITALS: BP 103/48; PULSE 58; RESP 18; TEMP 98.2; O2SAT 99
[2017-12-19] MEDS: metroNIDAZOLE 500 MG TAB PO SCH ×2 (09:08→21:24)
[2017-12-19] MEDS: PRENATAL VITAMIN CHEWABLE TAB CHEW SCH (09:08)
[2017-12-19] MEDS: SODIUM CHLORIDE 0.9% FLUSH 10 ML FLUSH IV FLUSH SCH ×2 (09:11→21:00)
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
[2017-12-19] MEDS: ACETAMINOPHEN 1000 MG/100 ML 100 ML IV SCH ×3 (10:37→22:47)
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
[2017-12-19 12:00] VITALS: BP 94/47; PULSE 66; RESP 18; TEMP 98; O2SAT 98
[2017-12-19 16:27] VITALS: BP 105/54; PULSE 69; RESP 18; TEMP 98; O2SAT 99
[2017-12-19 20:00] VITALS: BP 106/54; PULSE 68; RESP 18; TEMP 98.5; O2SAT 100
[2017-12-20] VITALS (7 sets, daily range): BP systolic 86–110; BP diastolic 46–59; PULSE 61–67; RESP 18; TEMP 97.1–98.3; O2SAT 98–100
[2017-12-20] MEDS: AMPICILLIN-SULBACTAM INJ 3 GM in SODIUM CHLORIDE 0.9% INJ 100 ML IV SCH ×4 (04:33→21:38)
[2017-12-20] MEDS: LACTATED RINGER'S 1000 ML INJ 1,000 ML IV SCH ×2 (04:33→13:50)
[2017-12-20] MEDS: ACETAMINOPHEN 1000 MG/100 ML 100 ML IV SCH (06:00)
[2017-12-20 07:51] LABS: HEMATOCRIT 26.8 % (35.0-46.0); HEMOGLOBIN 9.2 GM/DL (11.6-15.3); MEAN CELL VOLUME 90.4 FL (80.0-100.0); MEAN CORPUSCULAR HEMOGLOBIN 31.2 PG (27.0-34.0); MEAN CORPUSCULAR HGB CONC 34.5 % (32.0-36.0); MEAN PLATELET VOLUME 9.9 FL (7.0-11.0); PLATELET COUNT 129 TH/MM3 (150-450); RED BLOOD COUNT 2.96 MIL/MM3 (4.00-5.30); RED CELL DISTRIBUTION WIDTH 13.7 % (11.6-17.2); WHITE BLOOD COUNT 7.2 TH/MM3 (4.0-11.0)
[2017-12-20 08:04] LABS: BICARBONATE 23.6 MEQ/L (21.0-32.0); CALCIUM 8.1 MG/DL (8.5-10.1); CREATININE 0.37 MG/DL (0.50-1.00)
[2017-12-20] MEDS: PRENATAL VITAMIN CHEWABLE TAB CHEW SCH (09:08)
[2017-12-20] MEDS: metroNIDAZOLE 500 MG TAB PO SCH ×2 (09:08→21:38)
[2017-12-20] MEDS ORDERED: ACETAMINOPHEN 500 MG CPLT PO PRN (09:30)
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
[2017-12-20] MEDS: SODIUM CHLORIDE 0.9% FLUSH 10 ML FLUSH IV FLUSH SCH ×2 (21:00→21:39)
[2017-12-21] VITALS: BP 108/56; PULSE 67; RESP 18; TEMP 98.1; O2SAT 100
[2017-12-21] MEDS: LACTATED RINGER'S 1000 ML INJ 1,000 ML IV SCH (00:31)
[2017-12-21 04:00] VITALS: BP 104/50; PULSE 63; RESP 18; TEMP 98.1; O2SAT 99
[2017-12-21] MEDS: AMPICILLIN-SULBACTAM INJ 3 GM in SODIUM CHLORIDE 0.9% INJ 100 ML IV SCH ×2 (04:29→09:13)
[2017-12-21 08:19] VITALS: BP 107/53; PULSE 63; RESP 18; TEMP 98.3; O2SAT 99
[2017-12-21] MEDS: SODIUM CHLORIDE 0.9% FLUSH 10 ML FLUSH IV FLUSH SCH (09:00)
[2017-12-21] MEDS: metroNIDAZOLE 500 MG TAB PO SCH (09:13)
[2017-12-21] MEDS: PRENATAL VITAMIN CHEWABLE TAB CHEW SCH (09:13)
--- NOTE | 2017-12-21 10:36 | HHI.DCPOC ---
Discharge Care Plan Diagnosis: (1) BV (bacterial vaginosis) (2) Cellulitis of right hand Goals to Promote Your Health * To prevent worsening of your condition and complications, please take medications as prescribed. Please follow-up with your doctor and with the hand surgeon within 2 weeks. * To maintain your health at the optimal level, please avoid physical trauma and continue to follow-up with your doctor. Directions to Meet Your Goals Take your medications as prescribed Follow your dietary instruction Follow activity as directed Keep your appointments as scheduled Take your immunizations and boosters as scheduled If your symptoms worsen call your PCP, if no PCP go to Urgent Care Center or Emergency Room Smoking is Dangerous to Your Health. Avoid second hand smoke Call the 24-hour hour crisis hotline for domestic abuse at Chris Gamboa MD R2 December 21, 2017 10:36
[2017-12-21] MEDS ORDERED: METR1TAB76 PO (10:38)
[2017-12-21] MEDS ORDERED: AUGM875T3 PO (10:38)
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
== END 2017-12-21 11:17 | disposition home or self-care (01) | DRG 781 ==
LOC: NEPC 08:15 → NEDA 11:28 → N05A 13:47
PROVIDERS: ADMIT Family Medicine; ATTEND Family Medicine
PROC: 0L970ZZ Drainage of Right Hand Tendon, Open Approach (ICD-10-PCS; principal; 2017-12-18 17:48)
DX: O98.812 Other maternal infectious and parasitic diseases complicating pregnancy, second trimester (principal); O23.592 Infection of other part of genital tract in pregnancy, second trimester; L03.113 Cellulitis of right upper limb; Z3A.17 17 weeks gestation of pregnancy; O99.012 Anemia complicating pregnancy, second trimester; O20.8 Other hemorrhage in early pregnancy; E87.6 Hypokalemia; O26.892 Other specified pregnancy related conditions, second trimester; O99.332 Smoking (tobacco) complicating pregnancy, second trimester
CPT/HCPCS: 73130; 76805; 80048; 80053; 80307; 81001; 83605; 85025; 85027; 86850; 86900; 86901; 87015; 87040; 87070; 87102; 87116; 87205; 87206; 87210; 87491; 87591; 96365; J0131; J0295; J1100; J3010; J7120

== ENCOUNTER 2018-04-18 03:55 | Inpatient (IN) ==
--- NOTE | 2018-04-18 04:38 | P.HPOB ---
Patient Name: Becca Bush Date of : 89 Patient Status: Emergency Emergency Provider: Sandor Deluna Date: 04/18/2018 Initialization Date: 04/17/18 09:33 History of Present Illness Primary Care Physician: No Primary Care Physician Chief Complaint: Red-tinted vaginal fluid History of Present Illness: Patient is a 32 year old at 32 weeks and 3 days who presents to OB triage complaining of labor pain and found to be completely dilated kamini breech presentation Patient experienced rupture of membranes on April 10. She was seen at [facility], where she received medications to stop her contractions and two doses of betamethasone. Patient was then transferred to [facility] for further management. She was treated there with IV antibiotics x2 days and then discharged on amoxicillin x5 days. Bed rest was also recommended. Patient has irregular contractions. She reports continuous fluid leakage. She endorses positive movement. G1: 11 years ago, full term, c/s due to distress G2: early miscarriage G3: early miscarriage G4: current , no complications Weeks Gestation:: 32 Para: 1 : 4 Review of Systems All other systems reviewed negative except as stated in HPI PMFSH - History History Provided By: Patient - Medical / Surgical Hx Neg / Unobtainable Medical Problems Denied: Yes - Surgical History Surgical History: Surgical History (Last Updated 04/17/18 @ 10:42 by Krupa Reyes MD, R2) History of delivery History of cholecystectomy History of lymph node biopsy - Social History I have reviewed the patient's Social History: Yes - Tobacco History Tobacco Use In Past 30 Days: Yes (1/2 pack per day ) Smoking Status: Current every day smoker Tobacco Type: Cigarettes Packs Per Day: 0.5 - Alcohol History How Often Do You Have a Drink Containing Alcohol: Never - Substance Use History Substance History: No History of Abuse - Travel History History of Recent Travel: No Recent Travel in the [place] Within the Last 8 Weeks: No Recent Travel Out of the Country Within the Last 8 Weeks: No Medications and Allergies Allergies Allergy/AdvReac Type Severity Reaction Status Date / Time No Known Allergies Allergy Unknown Uncoded 11/13/17 10:57 Exam Vital signs: Narrative: GENERAL: Well-nourished, well-developed patient. SKIN: Warm and dry. HEAD: Normocephalic and atraumatic. EYES: No scleral icterus. No injection or drainage. ENT: No nasal drainage noted. Mucous membranes pink. Airway patent. NECK: Supple, trachea midline. No JVD. CARDIOVASCULAR: Regular rate and rhythm without murmurs, gallops, or rubs. RESPIRATORY: Breath sounds equal bilaterally. No accessory muscle use. ABDOMEN/GI: Abdomen soft, tender, bowel sounds present, no rebound, no guarding Gravid to 32 weeks size GENITOURINARY: External Genitalia: intact and normal in appearance the breech is presenting at the introitus Uterine Contractions: q 3 min FHT's: Category: 1 Baseline: 140 Reactive: + Variability: moderate Decels: none EXTREMITIES: No cyanosis or edema. BACK: Nontender without obvious deformity. No CVA tenderness. NEUROLOGICAL: Awake and alert. Motor and sensory grossly within normal limits. Five out of 5 muscle strength in all muscle groups. Normal speech. Assessment and Plan - Diagnosis (Precipitate labor -kamini breech presentation , prolonged P PROM, previous C- section (2) 32 weeks gestation of Code(s): Z3A.32 - 32 weeks gestation of Status: Acute - Plan Admission to the hospital eminent kamini breech delivery vaginally - Discharge Disp - Discharge Instructions Print Language: Cambodian
[2018-04-18] MEDS ORDERED: Oxytocin 30 Units/500ml Premix 30 UNITS/500 ML BAG IV.CONT PRN (04:44)
[2018-04-18] MEDS ORDERED: Zolpidem Tartrate 5 MG Tablet PO PRN (04:44)
[2018-04-18] MEDS ORDERED: Bisacodyl 10 MG Supp RECTAL PRN (04:44)
[2018-04-18] MEDS ORDERED: Benzocaine 20% Top Spray 60 ML Can TOPICAL PRN (04:44)
[2018-04-18] MEDS ORDERED: Naloxone Inj 0.4 MG/ML Vial IV.PUSH PRN ×2 (04:44→04:46)
[2018-04-18] MEDS ORDERED: Witch Hazel 50%/Glyderin 12.5% 40 Pad Jar RECTAL PRN (04:44)
[2018-04-18] MEDS ORDERED: Acetaminophen 325 MG Tablet PO PRN (04:44)
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
[2018-04-18] MEDS ORDERED: Sodium Chlor 0.9% Inj 500 ML IV.SIG PRN (04:46)
[2018-04-18] MEDS ORDERED: fentaNYL Citrate Inj 100 MCG/2 ML Ampul IV.PUSH PRN ×2 (04:46)
[2018-04-18] MEDS ORDERED: Sod Chloride 0.9% Inj 1,000 ML IV.CONT PRN (04:46)
[2018-04-18] MEDS ORDERED: Oxytocin 30 Units/500ml Premix 30 UNITS/500 ML BAG IV.SIG ONE (04:46)
[2018-04-18] MEDS ORDERED: Citric Acid/Sodium Citrate Liq 30 ML UDC PO SCH (05:00)
[2018-04-18 05:31] LABS: Baso % (Auto) 0.2 % (0.0-2.0); Eos % (Auto) 0.2 % (0.0-4.0); Hematocrit 37.1 % (35.0-46.0); Hemoglobin 12.9 gm/dL (11.6-15.3); Lymph # (Auto) 1.1 th/mm3 (1.0-4.8); Lymph % (Auto) 5.1 % (9.0-44.0); Mean Corpuscular HGB Conc 34.7 % (32.0-36.0); Mean Corpuscular Hemoglobin 31.5 pg (27.0-34.0); Mean Corpuscular Volume 90.8 fL (80.0-100.0); Mean Platelet Volume 8.7 fL (7.0-11.0); Mono # (Auto) 1.7 th/mm3 (0.0-0.9); Mono % (Auto) 7.8 % (0.0-8.0); Neut % (Auto) 86.7 % (16.0-70.0); Platelet Count 220 th/mm3 (150-450); Red Blood Count 4.09 mil/mm3 (4.00-5.30); Red Cell Distribution Width 13.2 % (11.6-17.2); White Blood Count 21.9 th/mm3 (4.0-11.0)
[2018-04-18 07:18] LABS: Amphetamine Urine With Conf Neg (Neg); Benzodiazepine Urine With Conf Neg (Neg)
[2018-04-18 07:28] LABS: Bilirubin,Urine Negative (Negative); Clarity,Urine Hazy (Clear); Glucose,Urine (UA) Negative (Negative); Leukocyte Esterase,Urine Small (Negative); Nitrite,Urine Negative (Negative)
[2018-04-18 07:35] LABS: Color,Urine Red (Yellw/Straw)
[2018-04-18] MEDS ORDERED: Measles/Mumps/Rubella Vaccine Inj 0.5 ML Vial SQ ONE (16:00)
[2018-04-18] MEDS ORDERED: Diphtheria/Tetanus/Pertussis Vaccine Inj 0.5 ML Syringe IM ONE (16:00)
[2018-04-18] MEDS: Senna/Docusate Sodium 8.6/50 MG Tablet PO SCH ×2 (18:10→22:47)
--- NOTE | 2018-04-19 07:59 | P.PNOB ---
Subjective Interval history: Patient seen and examined this morning. AFVSS overnight. day #1. Pain well-controlled. Decreased lochia. Denies dysuria. No breast tenderness. She is feeding the baby via breast. Appetite good. No nausea or vomiting. Reports she has not passed flatus or had a bowel movement yet. Ambulating well. Denies calf pain, shortness of breath, or cough. She otherwise has no other complaints or concerns this morning. Objective Vital Signs/I&O: Vital Signs 04/18/18 22:38 Temperature 98.0 F Pulse Rate 57 L Respiratory Rate 17 Blood Pressure 108/68 Result Diagrams: 04/18/18 05:15 Objective Remarks: GENERAL: Well-nourished, well-developed patient. CARDIOVASCULAR: Regular rate and rhythm without murmurs, gallops, or rubs. RESPIRATORY: Breath sounds equal bilaterally. No accessory muscle use. ABDOMEN/GI: Abdomen soft, non-tender. Fundus: Firm, non-tender at umbilicus. GENITOURINARY: Light bleeding. EXTREMITIES: No cyanosis or edema, non-tender, without signs of DVT. Medications and IVs: Active Medications Acetaminophen (Tylenol) 650 mg PO Q4H PRN PRN Reason: PAIN SCALE 1 TO 2 Al Hydroxide/Mg Hydroxide (Milk Of Magnesia Liq) 30 ml PO Q12H PRN PRN Reason: Mild Constipation Benzocaine (Americaine 20% Top [place]) 1 spray TOPICAL Q4H PRN PRN Reason: For Perineum Discomfort Bisacodyl (Dulcolax Supp) 10 mg RECTAL DAILY PRN PRN Reason: SEVERE CONSITIPATION Citric Acid/Sodium Citrate (Sodium Citrate/Citric Acid Liq) 30 ml PO [employer] [facility] Stop: 04/22/18 04:59 Fentanyl Citrate (Fentanyl Inj) 50 mcg IV.PUSH Q1H PRN PRN Reason: Pain Scale 3 - 5 Fentanyl Citrate (Fentanyl Inj) 100 mcg IV.PUSH Q1H PRN PRN Reason: PAIN SCALE 6 TO 10 Oxytocin (Pitocin 30 Units/Ns 500 Ml Premix) 30 units in 500 mls @ 100 mls/hr IV.CONT UNSCH PRN PRN Reason: Heavy bleeding Lactated Ringer's (Lr 1000 Ml Inj) 1,000 mls @ 3,000 mls/hr IV.SIG UNSCH PRN PRN Reason: compromise or epidural Sodium Chloride (Ns Inj) 500 mls @ 1,000 mls/hr IV.SIG UNSCH PRN PRN Reason: SEE LABEL COMMENTS Sodium Chloride (Ns Inj) 1,000 mls @ 100 mls/hr IV.CONT .Q10H PRN PRN Reason: SEE LABEL COMMENTS Lactated Ringer's (Lr 1000 Ml Inj) 1,000 mls @ 125 mls/hr IV.CONT .Q8H [place] Ibuprofen (Motrin) 800 mg PO Q8H PRN PRN Reason: For Cramping Last Admin: 04/18/18 22:45 Dose: 800 mg Lactulose (Lactulose Liq) 30 ml PO DAILY PRN PRN Reason: SEVERE CONSITIPATION Lidocaine HCl (Xylocaine 1% Inj) 0.1 ml I-DERMAL PRN PRN PRN Reason: For IV start Stop: 04/21/18 04:45 Lidocaine HCl (Xylocaine 1% Inj) 10 ml INFILTRATN PRN PRN PRN Reason: For episiotomy repair Stop: 04/20/18 04:45 Mineral Oil (Muri-Lube Oil) 10 ml TOPICAL PRN PRN PRN Reason: PRN perineal massage Naloxone HCl (Narcan Inj) 0.1 mg IV.PUSH Q2M PRN PRN Reason: for opiate reversal Naloxone HCl (Narcan Inj) 0.1 mg IV.PUSH Q2M PRN PRN Reason: for opiate reversal Ondansetron HCl (Zofran Odt) 4 mg PO Q6H PRN PRN Reason: NAUSEA OR VOMITING Senna/Docusate Sodium (Rissa-Colace) 1 tab PO BID [facility] Last Admin: 04/18/18 22:47 Dose: Not Given Sennosides (Senokot) 17.2 mg PO Q12H PRN PRN Reason: Moderate Constipation Sodium Chloride (Ns Flush) 2 ml IV.FLUSH BID [facility] Last Admin: 04/19/18 01:20 Dose: Not Given Sodium Chloride (Ns Flush) 2 ml IV.FLUSH PRN PRN PRN Reason: FLUSH AFTER USING IV ACCESS Witch Trixie/Glycerin (Tucks Pads) 1 applicatio RECTAL QID PRN PRN Reason: HEMORRHOIDS Zolpidem Tartrate (Ambien) 5 mg PO HS PRN PRN Reason: SLEEP Assessment and Plan - Plan 32 year old PPD#1 from breech delivery. 1. Care - AFVSS - Encouraged OOB, as tolerated - Motrin prn pain - Advised pelvic rest x 6 weeks -Breast feeding - Contraception: Patient will discuss her options with her OB doctor - Will f/u with OB provider in 6 weeks Discussed with
[2018-04-19] MEDS: Senna/Docusate Sodium 8.6/50 MG Tablet PO SCH (08:12)
== END 2018-04-19 13:42 | disposition home or self-care (01) ==
LOC: HOBED 03:55 → H1EA 04:00 → H2E 04:00 → H1EA 06:26
PROVIDERS: ADMIT Obstetrics & Gynecology Maternal & Fetal Medicine; ATTEND Obstetrics & Gynecology Maternal & Fetal Medicine